=== PATIENT | female | born 1965 | race Two or more races ===

== ENCOUNTER 2016-05-23 13:16 | Inpatient (IN) | payer OTHER ==
[2016-05-23 13:41] VITALS: BMI 29.0
--- NOTE | 2016-05-23 14:11 | HP ---
CIWA Score - CIWA Score Nausea/Vomitin-Mild Nausea/No Vomiting Muscle Tremors: 4-Moderate,w/Arms Extend Anxiety: 4-Mod. Anxious/Guarded Agitation: 1-Slight > Activity Paroxysmal Sweats: 1-Minimal Palms Moist Orientation: 1-Uncertain about Date Tacttile Disturbances: 2-Mild Itch/Numbness/Burn Auditory Disturbances: 2-Mild Harshness/Frighten Visual Disturbances: 2-Mild Sensitivity Headache: 2-Mild CIWA-Ar Total Score: 20 Admission ROS S - HPI Chief Complaint: I'm tired of drinking, I'm sick, my family is upset Allergies/Adverse Reactions: Allergies Allergy/AdvReac Type Severity Reaction Status Date / Time No Known Allergies Allergy Verified 05/23/16 14:00 History of Present Illness: 50 yo woman here for detox from alcohol - last detox in [place] November 2015, relapsed, had seizure 05/13/16. Was in [facility] yesterday as fell in house ( standing on chair which collapsed) two weeks ago but kept having pain - was seen , treated (xray normal) and released. Then decided to go for detox. Exam Limitations: Clinical Condition - Ebola screening Have you traveled outside of the country in the last 21 days: No Have you had contact with anyone from an Ebola affected area: No Have you been sick,other than usual withdrawal symptoms: No Do you have a fever: No - Review of Systems Constitutional: Loss of Appetite, Malaise, Night Sweats, Changes in sleep, Weakness EENT: reports: Blurred Vision Respiratory: reports: No Symptoms reported Cardiac: reports: No Symptoms Reported GI: reports: Nausea, Indigestion : reports: Frequency Musculoskeletal: reports: Back Pain Integumentary: reports: Dryness Neuro: reports: Headache Endocrine: reports: No Symptoms Reported Hematology: reports: No Symptoms Reported Psychiatric: reports: Judgement Intact, Mood/Affect Appropiate, Orientated x3, Anxious Other Systems: Reviewed and Negative Patient History - Patient Medical History Hx Anemia: No Hx Asthma: Yes Hx Chronic Obstructive Pulmonary Disease (COPD): No Hx Cancer: No Hx Cardiac Disorders: No Hx Congestive Heart Failure: No Hx Hypertension: No Hx Hypercholesterolemia: No Hx Pacemaker: No HX Cerebrovascular Accident: No Hx Seizures: Yes (05/13/16) Hx Dementia: No Hx Diabetes: No Hx Gastrointestinal Disorders: Yes (GERD) Hx Liver Disease: Yes (pre-cirrhosis) Hx Genitourinary Disorders: No Hx Sexually Transmitted Disorders: No Hx Renal Disease (ESRD): Yes (history renal calculi) Hx Thyroid Disease: No Hx Human Immunodeficiency Virus (HIV): No Hx Hepatitis C: No Hx Depression: Yes (on meds, sees psych) Hx Suicide Attempt: Yes (hospitalized 02/2016,[facility]) Hx Bipolar Disorder: Yes - Patient Surgical History Past Surgical History: Yes Hx Abdominal Surgery: Yes (gastric bypass 2004 [facility]) Anesthesia Reaction: Yes (lithotripsy 2008 with stent (removed) ) - PPD History Previous Implant?: Yes Documented Results: Negative w/o proof Implanted On Prior [facility] Admission?: No PPD to be Administered?: Yes - Reproductive History Patient is a Female of Child Bearing Age (11 -55 yrs old): Yes Patient : No - Smoking Cessation Smoking history: Former smoker Have you smoked in the past 12 months: No Initiated information on smoking cessation: No - Substance & Tx. History Hx Alcohol Use: Yes Hx Substance Use: No Substance Use Type: Alcohol Hx Substance Use Treatment: Yes (detox, rehab) - Substances Abused Alcohol Route: Oral Frequency: Daily Amount used: 1/2 pint Age of first use: 39 Date of Last Use: 05/22/16 Family Disease History - Family Disease History Family Disease History: Diabetes: Father (), Other: Mother (, alcohol), Sister (renal stone) Admission Physical Exam S - Vital Signs Vital Signs: Vital Signs - 24 hr 05/23/16 13:37 Temperature 99.0 F Pulse Rate 88 Respiratory 20 Rate Blood Pressure 143/85 - Physical General Appearance: Yes: Nourished, Appropriately Dressed, Moderate Distress, Tremorous, Anxious HEENTM: Yes: Hearing grossly Normal, Normal ENT Inspection, Normocephalic, Normal Voice, Pharynx Normal, Other (missing teeth) Respiratory: Yes: Normal Breath Sounds, No Respiratory Distress Neck: Yes: No masses,lesions,Nodules, Supple, Trachea in good position Breast: Yes: Breast Exam Deferred Cardiology: Yes: Regular Rhythm, Regular Rate Abdominal: Yes: Soft Genitourinary: Yes: Frequency Back: Yes: Normal Inspection Musculoskeletal: Yes: full range of Motion, Gait Steady, Back pain Extremities: Yes: Normal Inspection, Non-Tender, Tremors Neurological: Yes: Fully Oriented, Alert, Normal Mood/Affect, Normal Response Integumentary: Yes: Normal Color, Warm Lymphatic: Yes: Within Normal Limits - Diagnostic (1) Alcohol dependence with uncomplicated withdrawal Current Visit: Yes Status: Chronic (2) Asthma Current Visit: Yes Status: Chronic Qualifiers: Asthma severity: mild intermittent Asthma complication type: uncomplicated Qualified Code(s): J45.20 - Mild intermittent asthma, uncomplicated (3) GERD (gastroesophageal reflux disease) Current Visit: Yes Status: Chronic Qualifiers: Esophagitis presence: esophagitis presence not specified Qualified Code(s): K21.9 - Gastro-esophageal reflux disease without esophagitis (4) Sacral contusion Current Visit: Yes Status: Chronic Qualifiers: Encounter type: subsequent encounter Qualified Code(s): S30.0XXD - Contusion of lower back and pelvis, subsequent encounter (5) History of gastric bypass Current Visit: Yes Status: Chronic Cleared for Admission [facility] - Detox or Rehab [facility] Level of Care: Medically Managed Detox Regimen/Protocol: Librium [facility] Breath Alcohol Content Breath Alcohol Content: 0 Urine Pregancy Test - Result Urine Test Results: Negative- NO Line Present Urine Drug Screen - Results Drug Screen Negative: No Urine Drug Screen Results: BZO-Benzodiazepines, TCA-Tricyclic Antidepress
[2016-05-23] MEDS ORDERED: MAGNESIUM HYDROX 2400MG/30ML ORAL SUSPENSION 30 ML CUP PO PRN (14:19)
[2016-05-23] MEDS ORDERED: IBUPROFEN 400 MG TABLET (FP) PO PRN (14:19)
[2016-05-23] MEDS ORDERED: MAGNESIUM CITRATE 300 ML BOTTLE PO PRN (14:19)
[2016-05-23] MEDS ORDERED: hydrOXYzine PAMOATE 50 MG CAPSULE (FP) PO PRN (14:19)
[2016-05-23] MEDS ORDERED: chlordiazePOXIDE HCL 25 MG CAPSULE PO ONE (14:19)
[2016-05-23] MEDS ORDERED: MENTHOL/PHENOL 1 EACH UD MM PRN (14:19)
[2016-05-23] MEDS ORDERED: chlordiazePOXIDE HCL 25 MG CAPSULE PO PRN (14:19)
[2016-05-23] MEDS ORDERED: guaiFENesin/D-METHORPHAN HB 10 ML UNIT-DOSE CUPS PO PRN (14:19)
[2016-05-23] MEDS ORDERED: LOPERAMIDE HCL 2 MG CAPSULE PO PRN (14:19)
[2016-05-23] MEDS ORDERED: MAG HYDROX/AL HYDROX/SIMETH 30 ML UNIT-DOSE CUP PO PRN (14:19)
[2016-05-23] MEDS ORDERED: ALBUTEROL SO4 6.7 GM HFA INHALER IH PRN (14:22)
[2016-05-23] MEDS: LIDOCAINE 5% TOPICAL PATCH TP SCH (16:00)
[2016-05-23] MEDS: chlordiazePOXIDE HCL 25 MG CAPSULE PO SCH ×2 (17:40→22:37)
[2016-05-23 18:01] LABS: URINE APPEARANCE CLEAR; URINE BILIRUBIN NEGATIVE (NEGATIVE); URINE COLOR LTYELLOW; URINE GLUCOSE (UA) NEGATIVE (NEGATIVE); URINE KETONE NEGATIVE (NEGATIVE); URINE NITRITE NEGATIVE (NEGATIVE); URINE PROTEIN NEGATIVE (NEGATIVE); URINE UROBILINOGEN NEGATIVE E.U./dl (0.2-1.0)
[2016-05-23 18:03] LABS: URINE BLOOD 1+ (NEGATIVE); URINE LEUK ESTERASE 1+ (NEGATIVE)
[2016-05-23 18:06] LABS: URINE BACTERIA RARE /hpf (NONE SEEN); URINE RBC <1 /hpf (0-3); URINE WBC 4 /hpf (3-5)
[2016-05-23] MEDS: THIAMINE HCL 100 MG TABLET (FP) PO SCH (22:37)
[2016-05-23] MEDS: DOCUSATE SODIUM 100 MG CAPSULE (FP) PO SCH (22:37)
[2016-05-23] MEDS: diphenhydrAMINE HCL 50 MG CAPSULE PO PRN (22:39)
[2016-05-24] MEDS: chlordiazePOXIDE HCL 25 MG CAPSULE PO SCH ×4 (05:31→22:20)
[2016-05-24 10:17] LABS: MCH 28.2 pg (25.7-33.7); MCHC 32.1 g/dl (32.0-36.0); MEAN CELL VOLUME 87.8 fl (80-96); MEAN PLT VOLUME 9.7 fl (7.5-11.1); PLATELET COUNT 90 K/MM3 (134-434); RDW 17.1 % (11.6-15.6); WHITE BLOOD COUNT 3.8 K/mm3 (4.0-10.0)
[2016-05-24] MEDS: PRENATAL VITAMINS W/ FOLIC ACID TABLET (FP) PO SCH (10:24)
[2016-05-24] MEDS: LIDOCAINE 5% TOPICAL PATCH TP SCH (10:24)
[2016-05-24] MEDS: DOCUSATE SODIUM 100 MG CAPSULE (FP) PO SCH ×2 (10:24→22:19)
[2016-05-24 10:36] LABS: ALBUMIN 2.9 g/dl (3.4-5.0); ALK PHOS 212 U/L (45-117); ANION GAP 11 (8-16); BILIRUBIN,TOTAL 0.9 mg/dL (0.2-1.0); CALCIUM 8.3 mg/dL (8.5-10.1); CO2 27 mmol/L (21-32); CREATININE 0.5 mg/dL (0.55-1.02); GLUCOSE,RANDOM 89 mg/dL (74-106); SGOT/AST 77 U/L (15-37); SGPT/ALT 39 U/L (12-78); TOT PROT 6.6 g/dl (6.4-8.2)
--- NOTE | 2016-05-24 12:24 | PN ---
[facility] CIWA - CIWA Score Nausea/Vomitin-Mild Nausea/No Vomiting Muscle Tremors: 4-Moderate,w/Arms Extend Anxiety: 4-Mod. Anxious/Guarded Agitation: 3 Paroxysmal Sweats: 3 Orientation: 0-Oriented Tacttile Disturbances: 0-None Auditory Disturbances: 0-None Visual Disturbances: 0-None Headache: 0-None Present CIWA-Ar Total Score: 15 S Progress Note (SOAP) Subjective: anxiety,tremors,sweating,interrupted sleep.Has a healed laceration rt. index Objective: 05/24/16 12:21 Vital Signs - 8 hr 05/24/16 05/24/16 06:00 10:00 Temperature 99.0 F 97.9 F Pulse Rate 65 104 H Respiratory 16 18 Rate Blood Pressure 128/84 136/82 Laboratory Last Values WBC 3.8 K/mm3 (4.0-10.0) L 05/24/16 07:50 RBC 4.02 M/mm3 (3.60-5.2) 05/24/16 07:50 Hgb 11.3 GM/dL (10.7-15.3) 05/24/16 07:50 Hct 35.3 % (32.4-45.2) 05/24/16 07:50 MCV 87.8 fl (80-96) 05/24/16 07:50 MCHC 32.1 g/dl (32.0-36.0) 05/24/16 07:50 RDW 17.1 % (11.6-15.6) H 05/24/16 07:50 Plt Count 90 K/MM3 (134-434) L 05/24/16 07:50 MPV 9.7 fl (7.5-11.1) 05/24/16 07:50 Sodium 144 mmol/L (136-145) 05/24/16 07:50 Potassium 3.3 mmol/L (3.5-5.1) L 05/24/16 07:50 Chloride 106 mmol/L (98-107) 05/24/16 07:50 Carbon Dioxide 27 mmol/L (21-32) 05/24/16 07:50 Anion Gap 11 (8-16) 05/24/16 07:50 BUN 4 mg/dL (7-18) L 05/24/16 07:50 Creatinine 0.5 mg/dL (0.55-1.02) L 05/24/16 07:50 Creat Clearance w eGFR > 60 (>60) 05/24/16 07:50 Random Glucose 89 mg/dL (74-106) 05/24/16 07:50 Calcium 8.3 mg/dL (8.5-10.1) L 05/24/16 07:50 Total Bilirubin 0.9 mg/dL (0.2-1.0) 05/24/16 07:50 AST 77 U/L (15-37) H 05/24/16 07:50 ALT 39 U/L (12-78) 05/24/16 07:50 Alkaline Phosphatase 212 U/L (45-117) H 05/24/16 07:50 Total Protein 6.6 g/dl (6.4-8.2) 05/24/16 07:50 Albumin 2.9 g/dl (3.4-5.0) L 05/24/16 07:50 Urine Color Ltyellow 05/23/16 17:54 Urine Appearance Clear 05/23/16 17:54 Urine pH 7.0 (5.0-8.0) 05/23/16 17:54 Ur Specific [place] 1.013 (1.001-1.035) 05/23/16 17:54 Urine Protein Negative (NEGATIVE) 05/23/16 17:54 Urine Glucose (UA) Negative (NEGATIVE) 05/23/16 17:54 Urine Ketones Negative (NEGATIVE) 05/23/16 17:54 Urine Blood 1+ (NEGATIVE) H 05/23/16 17:54 Urine Nitrite Negative (NEGATIVE) 05/23/16 17:54 Urine Bilirubin Negative (NEGATIVE) 05/23/16 17:54 Urine Urobilinogen Negative E.U./dl (0.2-1.0) 05/23/16 17:54 Ur Leukocyte Esterase 1+ (NEGATIVE) H 05/23/16 17:54 Urine RBC <1 /hpf (0-3) 05/23/16 17:54 Urine WBC 4 /hpf (3-5) 05/23/16 17:54 Ur Epithelial Cells Rare /hpf (FEW) 05/23/16 17:54 Urine Bacteria Rare /hpf (NONE SEEN) 05/23/16 17:54 labs noted,k-dur started Assessment: 05/24/16 12:23 Withdrawal sx. Plan: Continue detox
[2016-05-24] MEDS ORDERED: BACITRACIN 0.9 GM PACKET ONE ×2 (13:50→22:18)
[2016-05-24] MEDS: POTASSIUM CHLORIDE TABS 20 MEQ TABLET.ER (FP) PO SCH ×2 (13:51→22:19)
[2016-05-24] MEDS: ACETAMINOPHEN 325 MG TABLET (FP) PO PRN ×2 (13:52→22:23)
[2016-05-24] MEDS: P-EPHED 60MG/TRIPROLIDI 2.5MG TABLET PO PRN (13:53)
[2016-05-24] MEDS: BACITRACIN 15 GM TUBE TOPICAL OINTMENT TP SCH ×2 (13:56→22:19)
[2016-05-24] MEDS: diphenhydrAMINE HCL 50 MG CAPSULE PO PRN (22:22)
[2016-05-24] MEDS: THIAMINE HCL 100 MG TABLET (FP) PO SCH (22:33)
[2016-05-25] MEDS: chlordiazePOXIDE HCL 25 MG CAPSULE PO SCH ×2 (05:33→10:17)
--- NOTE | 2016-05-25 07:38 | CONSULT ---
[facility] Psychiatric Consult - Data Date of interview: 05/25/16 Admission source: [facility] Identifying data: Bridget is 50 years old female with psychiatric hospitalization history, history of Bipolar Disordewr intoxicated with: Alcohol and Xanax Substance Abuse History: - Smoking Cessation. Smoking history: Former smoker. Have you smoked in the past 12 months: No. Initiated information on smoking cessation: No. - Substance & Tx. History. Hx Alcohol Use: Yes. Hx Substance Use: No. Substance Use Type: Alcohol. Hx Substance Use Treatment: Yes (detox, rehab). - Substances Abused. Alcohol. Route: Oral. Frequency: Daily. Amount used: 1/2 pint. Age of first use: 39. Date of Last Use: 05/22/16. Family Disease History Medical History: Asthma, GERD, Gastric bypass history Psychiatric History: Patient reports history of Bipolar disordwer withcora banuelos psychioatric admission on 2015 at [facility] after OD, reports nom suicidal history since then, reports taking prior to admission: Seroquel 300mg po qhs. Zoloft 50mg poqd Physical/Sexual Abuse/Trauma History: Denies Additional Comment: Seroquel 300mg po qhs. Zoloft 50mg poqd Mental Status Exam - Mental Status Exam Alert and Oriented to: Person Cognitive Function: Fair Patient Appearance: Unkempt Mood: Sad Affect: Flat Patient Behavior: Sedated Speech Pattern: Delayed Voice Loudness: Mildly Soft/Quiet Thought Process: Goal Oriented Thought Disorder: Being Controlled Hallucinations: Denies Suicidal Ideation: Denies Homicidal Ideation: Denies Insight/Judgement: Fair Appetite: Fair Muscle strength/Tone: Mild Hypotonicity Gait/Station: Shuffling Additional Comments: Seroquel 300mg po qhs. Zoloft 50mg poqd Psychiatric Findings - Problem List ([place] 1, 2,3) (1) Alcohol dependence with uncomplicated withdrawal Current Visit: Yes Status: Chronic (2) Benzodiazepine abuse Current Visit: Yes Status: Acute (3) Bipolar disorder Current Visit: Yes Status: Suspected - Initial Treatment Plan Initial Treatment Plan: Seroquel 300mg po qhs. Zoloft 50mg poqd
[2016-05-25] MEDS: POTASSIUM CHLORIDE TABS 20 MEQ TABLET.ER (FP) PO SCH ×2 (10:16→22:09)
[2016-05-25] MEDS: SERTRALINE HCL 50 MG TABLET (FP) PO SCH (10:16)
[2016-05-25] MEDS: PRENATAL VITAMINS W/ FOLIC ACID TABLET (FP) PO SCH (10:16)
[2016-05-25] MEDS: DOCUSATE SODIUM 100 MG CAPSULE (FP) PO SCH ×2 (10:17→22:09)
[2016-05-25] MEDS: LIDOCAINE 5% TOPICAL PATCH TP SCH (10:18)
[2016-05-25] MEDS: BACITRACIN 15 GM TUBE TOPICAL OINTMENT TP SCH ×2 (10:20→23:34)
[2016-05-25] MEDS ORDERED: BACITRACIN 0.9 GM PACKET ONE (10:20)
[2016-05-25] MEDS ORDERED: PANTOPRAZOLE 20 MG TABLET (FP) PO ONE (10:46)
--- NOTE | 2016-05-25 10:49 | PN ---
[facility] CIWA - CIWA Score Nausea/Vomitin-No Nausea/No Vomiting Muscle Tremors: 4-Moderate,w/Arms Extend Anxiety: 4-Mod. Anxious/Guarded Agitation: 4-Moderately Restless Paroxysmal Sweats: 3 Orientation: 0-Oriented Tacttile Disturbances: 0-None Auditory Disturbances: 0-None Visual Disturbances: 0-None Headache: 0-None Present CIWA-Ar Total Score: 15 [facility] Progress Note (SOAP) Subjective: sweats agitation interrupted sleep acid reflux Objective: 05/25/16 10:48 Vital Signs Temperature 97.9 F 05/25/16 10:00 Pulse Rate 99 H 05/25/16 10:00 Respiratory Rate 18 05/25/16 10:00 Blood Pressure 134/96 05/25/16 10:00 O2 Sat by Pulse Oximetry (%) Laboratory Tests 05/23/16 05/24/16 05/24/16 17:54 07:50 07:50 WBC 3.8 L RBC 4.02 Hgb 11.3 Hct 35.3 MCV 87.8 MCHC 32.1 RDW 17.1 H Plt Count 90 L MPV 9.7 Sodium 144 Potassium 3.3 L Chloride 106 Carbon Dioxide 27 Anion Gap 11 BUN 4 L Creatinine 0.5 L Creat Clearance w eGFR > 60 Random Glucose 89 Calcium 8.3 L Total Bilirubin 0.9 AST 77 H ALT 39 Alkaline Phosphatase 212 H Total Protein 6.6 Albumin 2.9 L Urine Color Ltyellow Urine Appearance Clear Urine pH 7.0 Ur Specific [place] 1.013 Urine Protein Negative Urine Glucose (UA) Negative Urine Ketones Negative Urine Blood 1+ H Urine Nitrite Negative Urine Bilirubin Negative Urine Urobilinogen Negative Ur Leukocyte Esterase 1+ H Urine RBC <1 Urine WBC 4 Ur Epithelial Cells Rare Urine Bacteria Rare RPR Titer 05/24/16 07:50 WBC RBC Hgb Hct MCV MCHC RDW Plt Count MPV Sodium Potassium Chloride Carbon Dioxide Anion Gap BUN Creatinine Creat Clearance w eGFR Random Glucose Calcium Total Bilirubin AST ALT Alkaline Phosphatase Total Protein Albumin Urine Color Urine Appearance Urine pH Ur Specific [place] Urine Protein Urine Glucose (UA) Urine Ketones Urine Blood Urine Nitrite Urine Bilirubin Urine Urobilinogen Ur Leukocyte Esterase Urine RBC Urine WBC Ur Epithelial Cells Urine Bacteria RPR Titer Nonreactive awake/alert ambulating no acute distress Assessment: 05/25/16 10:48 withdrawal sx Plan: continue detox increase fluids protonix 20mg qdaily
--- NOTE | 2016-05-25 16:22 | EKG ---
Test Reason : Blood Pressure : / mmHG Vent. Rate : 088 BPM Atrial Rate : 088 BPM P-R Int : 140 ms QRS Dur : 068 ms QT Int : 400 ms P-R-T Axes : 037 006 011 degrees QTc Int : 484 ms NORMAL SINUS RHYTHM PROLONGED QT ABNORMAL ECG NO PREVIOUS ECGS AVAILABLE Confirmed by ANNAMARIA THAKKAR MD ([id number]) on 05/25/2016 4:22:26 PM Referred By: Confirmed By:ANNAMARIA THAKKAR MD
[2016-05-25] MEDS: chlordiazePOXIDE 5 MG CAPSULE PO SCH ×2 (18:13→22:09)
[2016-05-25] MEDS: P-EPHED 60MG/TRIPROLIDI 2.5MG TABLET PO PRN (18:25)
[2016-05-25] MEDS: QUEtiapine FUMARATE 300 MG TABLET PO SCH (22:09)
[2016-05-25] MEDS: THIAMINE HCL 100 MG TABLET (FP) PO SCH (22:09)
[2016-05-25 22:50] LABS: HIV 1 & 2 AB NEGATIVE; HIV 1 AGp24 NEGATIVE
[2016-05-26] MEDS: chlordiazePOXIDE 5 MG CAPSULE PO SCH ×2 (05:58→10:18)
[2016-05-26] MEDS: DOCUSATE SODIUM 100 MG CAPSULE (FP) PO SCH ×2 (10:17→22:21)
[2016-05-26] MEDS: PANTOPRAZOLE 20 MG TABLET (FP) PO SCH (10:17)
[2016-05-26] MEDS: SERTRALINE HCL 50 MG TABLET (FP) PO SCH (10:17)
[2016-05-26] MEDS: PRENATAL VITAMINS W/ FOLIC ACID TABLET (FP) PO SCH (10:17)
[2016-05-26] MEDS: POTASSIUM CHLORIDE TABS 20 MEQ TABLET.ER (FP) PO SCH ×2 (10:18→22:21)
[2016-05-26] MEDS: BACITRACIN 15 GM TUBE TOPICAL OINTMENT TP SCH (10:19)
[2016-05-26] MEDS: LIDOCAINE 5% TOPICAL PATCH TP SCH (10:19)
--- NOTE | 2016-05-26 11:11 | PN ---
[facility] Progress Note (SOAP) Subjective: interrupted sleep, less sweats and shakes Objective: 05/26/16 11:09 Last Vital Signs Temp Pulse Resp BP Pulse Ox 97.5 F L 96 H 18 114/86 05/26/16 10:08 05/26/16 10:08 05/26/16 10:08 05/26/16 10:08 Laboratory Tests 05/23/16 05/24/16 05/24/16 17:54 07:50 07:50 WBC 3.8 L RBC 4.02 Hgb 11.3 Hct 35.3 MCV 87.8 MCHC 32.1 RDW 17.1 H Plt Count 90 L MPV 9.7 Sodium 144 Potassium 3.3 L Chloride 106 Carbon Dioxide 27 Anion Gap 11 BUN 4 L Creatinine 0.5 L Creat Clearance w eGFR > 60 Random Glucose 89 Calcium 8.3 L Total Bilirubin 0.9 AST 77 H ALT 39 Alkaline Phosphatase 212 H Total Protein 6.6 Albumin 2.9 L Urine Color Ltyellow Urine Appearance Clear Urine pH 7.0 Ur Specific [place] 1.013 Urine Protein Negative Urine Glucose (UA) Negative Urine Ketones Negative Urine Blood 1+ H Urine Nitrite Negative Urine Bilirubin Negative Urine Urobilinogen Negative Ur Leukocyte Esterase 1+ H Urine RBC <1 Urine WBC 4 Ur Epithelial Cells Rare Urine Bacteria Rare RPR Titer HIV 1&2 Antibody Screen HIV P24 Antigen 05/24/16 05/25/16 07:50 10:30 WBC RBC Hgb Hct MCV MCHC RDW Plt Count MPV Sodium Potassium Chloride Carbon Dioxide Anion Gap BUN Creatinine Creat Clearance w eGFR Random Glucose Calcium Total Bilirubin AST ALT Alkaline Phosphatase Total Protein Albumin Urine Color Urine Appearance Urine pH Ur Specific [place] Urine Protein Urine Glucose (UA) Urine Ketones Urine Blood Urine Nitrite Urine Bilirubin Urine Urobilinogen Ur Leukocyte Esterase Urine RBC Urine WBC Ur Epithelial Cells Urine Bacteria RPR Titer Nonreactive HIV 1&2 Antibody Screen Negative HIV P24 Antigen Negative pt aox3 in nad ambulating Assessment: 05/26/16 11:09 withdrawl sx's Plan: cont. detox increase fluids d/c in am
[2016-05-26] MEDS: chlordiazePOXIDE HCL 10 MG CAPSULE PO SCH ×2 (18:08→22:21)
[2016-05-26] MEDS: THIAMINE HCL 100 MG TABLET (FP) PO SCH (22:21)
[2016-05-26] MEDS: QUEtiapine FUMARATE 300 MG TABLET PO SCH (22:21)
[2016-05-27] MEDS: BACITRACIN 15 GM TUBE TOPICAL OINTMENT TP SCH ×2 (00:08→10:08)
[2016-05-27] MEDS: chlordiazePOXIDE HCL 10 MG CAPSULE PO SCH ×2 (06:42→10:06)
--- NOTE | 2016-05-27 09:16 | DS ---
[facility] Detox Discharge Summary Admission Date: 05/23/16 Discharge Date: 05/27/16 - History Present History: Alcohol Dependence, Sedative Dependence - Physical Exam Results Vital Signs: Vital Signs Temperature 98.1 F 05/27/16 07:00 Pulse Rate 72 05/27/16 07:00 Respiratory Rate 18 05/27/16 07:00 Blood Pressure 103/60 05/27/16 07:00 O2 Sat by Pulse Oximetry (%) - Treatment Hospital Course: Detox Protocol Followed, Detoxed Safely, Responded well, Discharged Condition Good, Rehab Referral Accepted - Medication Discharge Medications: Ambulatory Orders Albuterol Sulfate Inhaler - [Ventolin Hfa Inhaler -] 2 inh PO Q4H PRN 05/23/16 Docusate Sodium [Colace -] 100 mg PO BID 05/23/16 Famotidine [Pepcid -] 20 mg PO BID 05/23/16 Quetiapine Fumarate [Seroquel -] 200 mg PO HS 05/23/16 Quetiapine Fumarate [Seroquel -] 300 mg PO HS #30 tab 05/25/16 Sertraline HCl 50 mg PO DAILY #30 tablet 05/25/16 Sertraline HCl [Zoloft -] 50 mg PO DAILY #30 05/25/16 - Diagnosis (1) Benzodiazepine abuse Current Visit: Yes Status: Chronic (2) Alcohol dependence with uncomplicated withdrawal Current Visit: Yes Status: Chronic (3) Asthma Current Visit: Yes Status: Chronic Qualifiers: Asthma severity: mild intermittent Asthma complication type: uncomplicated Qualified Code(s): J45.20 - Mild intermittent asthma, uncomplicated (4) GERD (gastroesophageal reflux disease) Current Visit: Yes Status: Chronic Qualifiers: Esophagitis presence: esophagitis presence not specified Qualified Code(s): K21.9 - Gastro-esophageal reflux disease without esophagitis (5) History of gastric bypass Current Visit: Yes Status: Chronic (6) Sacral contusion Current Visit: Yes Status: Chronic Qualifiers: Encounter type: subsequent encounter Qualified Code(s): S30.0XXD - Contusion of lower back and pelvis, subsequent encounter (7) Bipolar disorder Current Visit: Yes Status: Suspected - AMA Did Patient Leave Against Medical Advice: No
[2016-05-27] MEDS: PANTOPRAZOLE 20 MG TABLET (FP) PO SCH (10:05)
[2016-05-27] MEDS: POTASSIUM CHLORIDE TABS 20 MEQ TABLET.ER (FP) PO SCH (10:05)
[2016-05-27] MEDS: SERTRALINE HCL 50 MG TABLET (FP) PO SCH (10:05)
[2016-05-27] MEDS: PRENATAL VITAMINS W/ FOLIC ACID TABLET (FP) PO SCH (10:05)
[2016-05-27] MEDS: DOCUSATE SODIUM 100 MG CAPSULE (FP) PO SCH (10:06)
[2016-05-27] MEDS: LIDOCAINE 5% TOPICAL PATCH TP SCH (10:07)
[2016-05-27 10:20] VITALS: BP 116/78; PULSE 107; TEMP 96.4
[2016-05-27] MEDS ORDERED: BACITRACIN 0.9 GM PACKET ONE (10:56)
== END 2016-05-27 12:06 | disposition other institution (70) | DRG 897 ==
LOC: YASAS 13:16 → Y6N 15:11
PROVIDERS: ADMIT Internal Medicine; ATTEND Internal Medicine Addiction Medicine
PROC: HZ2ZZZZ Detoxification Services for Substance Abuse Treatment (ICD-10-PCS; principal; 2016-05-27)
DX: F10.230 Alcohol dependence with withdrawal, uncomplicated (principal); F13.10 Sedative, hypnotic or anxiolytic abuse, uncomplicated; F31.9 Bipolar disorder, unspecified; J45.20 Mild intermittent asthma, uncomplicated; K21.9 Gastro-esophageal reflux disease without esophagitis; Z98.84 Bariatric surgery status
CPT/HCPCS: 36415; 80053; 81003; 81015; 85027; 86593; 87389; 93005; 93010

== ENCOUNTER 2016-05-27 12:53 | Inpatient (IN) | payer OTHER ==
--- NOTE | 2016-05-27 14:05 | HP ---
Psychiatrist Admission - Data Date of interview: 05/27/16 Admission source: [address] [place] [address] Identifying data: This is the first admission to [address] [place] [address] for this 50 yearsold H mother of 4 grown children, resides with family,supported by [facility]. Medical History: H/O Gastric bypass,Liver insufficiency,Kidney stones,Seizure alcohol induced,S/P Sacral contusion,GERD,BA.Pancreatitis. Psychiatric History: Reports first contact with psychiatrist in 2006 to address depressed mood,anxiety in Private office in [facility].She was placed on Ambien,Zoloft ,Trazodone.Patient has been on different psychotropics including .She reports 5 psychiatric hospitalizations ,most recent was in Feb [address] [facility] due to DOD and drinking.Follow up by psychiatrist at [facility] in the [place].Current medications:Zoloft 50 mg po daily and Seroquel 300 mg po hs. Physical/Sexual Abuse/Trauma History: denies Allergies/Adverse Reactions: Allergies Allergy/AdvReac Type Severity Reaction Status Date / Time No Known Allergies Allergy Verified 05/23/16 14:00 Date of last physical exam: 05/23/16 Concur with the findings of this exam: Yes - Substance Abuse/Tx History Hx Alcohol Use: Yes (reports drinking since 45 years old,became heavy drinker ) Hx Substance Use: Yes (pain killers in the past) Substance Use Type: Alcohol, Opiates Hx Substance Use Treatment: Yes (completed 28 days in [place] last year) - Admission Criteria Previous failed treatment: Yes Poor recovery environment: Yes Comorbidities: Yes Lacks judgement: Yes Mental Status Exam - Mental Status Exam Alert and Oriented to: Time, Place, Person Cognitive Function: Grossly Intact Patient Appearance: Well Groomed Mood: Sad Affect: Mood Congruent, Labile Patient Behavior: Cooperative Speech Pattern: Clear Voice Loudness: Normal Thought Process: Goal Oriented Thought Disorder: Not Present Hallucinations: Denies Suicidal Ideation: Denies Homicidal Ideation: Denies Insight/Judgement: Fair Sleep: Fair Appetite: Fair Muscle strength/Tone: Normal Gait/Station: Normal Psychiatric Findings - Problem List ([place] 1, 2,3) (1) Alcohol dependence with uncomplicated withdrawal Current Visit: Yes Status: Chronic (2) Asthma Current Visit: Yes Status: Chronic Qualifiers: (3) Benzodiazepine abuse Current Visit: Yes Status: Chronic (4) GERD (gastroesophageal reflux disease) Current Visit: Yes Status: Chronic Qualifiers: (5) History of gastric bypass Current Visit: Yes Status: Chronic (6) Sacral contusion Current Visit: Yes Status: Chronic Qualifiers: (7) Bipolar disorder Current Visit: Yes Status: Suspected - Initial Treatment Plan Initial Treatment Plan: Continue current medications as per plan. Will monitor progress.
[2016-05-27] MEDS ORDERED: IBUPROFEN 400 MG TABLET (FP) PO PRN (14:13)
[2016-05-27] MEDS ORDERED: MAGNESIUM CITRATE 300 ML BOTTLE PO PRN (14:13)
[2016-05-27] MEDS ORDERED: MAG HYDROX/AL HYDROX/SIMETH 30 ML UNIT-DOSE CUP PO PRN (14:13)
[2016-05-27] MEDS ORDERED: P-EPHED 60MG/TRIPROLIDI 2.5MG TABLET PO PRN (14:13)
[2016-05-27] MEDS ORDERED: MAGNESIUM HYDROX 2400MG/30ML ORAL SUSPENSION 30 ML CUP PO PRN (14:13)
[2016-05-27] MEDS ORDERED: LOPERAMIDE HCL 2 MG CAPSULE PO PRN (14:13)
[2016-05-27] MEDS ORDERED: ALBUTEROL SO4 6.7 GM HFA INHALER IH PRN (14:14)
--- NOTE | 2016-05-27 14:15 | HP ---
[facility] Rehab Assess/Revision - Admission History Admitted to Rehab from: [facility] [place] Date of Admission to Rehab: 05/27/16 - Vital signs Vital Signs: Vital Signs Period Temp Pulse Resp BP Sys/Kwong Pulse Ox Last 24 Hr 97.8 F 89 18 115/78 - Findings Detox History & Physical reviewed: Yes Concur with findings: Yes
[2016-05-27] MEDS ORDERED: PNEUMOC 13-VAL CONJ-DIP CRM/PF 0.5 ML DISP.SYRIN IM ONE (15:19)
[2016-05-27] MEDS: DOCUSATE SODIUM 100 MG CAPSULE (FP) PO SCH (21:12)
[2016-05-27] MEDS: QUEtiapine FUMARATE 300 MG TABLET PO SCH (21:12)
[2016-05-27] MEDS: BACITRACIN 0.9 GM PACKET TP SCH (21:12)
[2016-05-27] MEDS: THIAMINE HCL 100 MG TABLET (FP) PO SCH (21:12)
[2016-05-28] MEDS: PANTOPRAZOLE 20 MG TABLET (FP) PO SCH (09:46)
[2016-05-28] MEDS: PRENATAL VITAMINS W/ FOLIC ACID TABLET (FP) PO SCH (09:46)
[2016-05-28] MEDS: LIDOCAINE 5% TOPICAL PATCH TP SCH (09:46)
[2016-05-28] MEDS: SERTRALINE HCL 50 MG TABLET (FP) PO SCH (09:46)
[2016-05-28] MEDS: DOCUSATE SODIUM 100 MG CAPSULE (FP) PO SCH ×2 (09:46→21:07)
[2016-05-28] MEDS: BACITRACIN 0.9 GM PACKET TP SCH ×2 (09:47→21:07)
[2016-05-28] MEDS ORDERED: PNEUMOCOCCAL 23 VACCINE 0.5 ML VIAL IM ONE (12:00)
[2016-05-28] MEDS: THIAMINE HCL 100 MG TABLET (FP) PO SCH (21:07)
[2016-05-28] MEDS: QUEtiapine FUMARATE 300 MG TABLET PO SCH (21:07)
[2016-05-29] MEDS: DOCUSATE SODIUM 100 MG CAPSULE (FP) PO SCH ×2 (10:35→21:20)
[2016-05-29] MEDS: PRENATAL VITAMINS W/ FOLIC ACID TABLET (FP) PO SCH (10:35)
[2016-05-29] MEDS: PANTOPRAZOLE 20 MG TABLET (FP) PO SCH (10:35)
[2016-05-29] MEDS: BACITRACIN 0.9 GM PACKET TP SCH ×2 (10:35→21:19)
[2016-05-29] MEDS: SERTRALINE HCL 50 MG TABLET (FP) PO SCH (10:35)
[2016-05-29] MEDS: LIDOCAINE 5% TOPICAL PATCH TP SCH (10:36)
[2016-05-29] MEDS: QUEtiapine FUMARATE 300 MG TABLET PO SCH (21:20)
[2016-05-29] MEDS: THIAMINE HCL 100 MG TABLET (FP) PO SCH (21:20)
[2016-05-30] MEDS: SERTRALINE HCL 50 MG TABLET (FP) PO SCH (09:51)
[2016-05-30] MEDS: LIDOCAINE 5% TOPICAL PATCH TP SCH (09:51)
[2016-05-30] MEDS: DOCUSATE SODIUM 100 MG CAPSULE (FP) PO SCH ×2 (09:51→21:19)
[2016-05-30] MEDS: PANTOPRAZOLE 20 MG TABLET (FP) PO SCH (09:51)
[2016-05-30] MEDS: BACITRACIN 0.9 GM PACKET TP SCH ×2 (09:51→21:19)
[2016-05-30] MEDS: PRENATAL VITAMINS W/ FOLIC ACID TABLET (FP) PO SCH (09:51)
[2016-05-30] MEDS: QUEtiapine FUMARATE 300 MG TABLET PO SCH (21:19)
[2016-05-30] MEDS: THIAMINE HCL 100 MG TABLET (FP) PO SCH (21:19)
[2016-05-31] MEDS: DOCUSATE SODIUM 100 MG CAPSULE (FP) PO SCH ×2 (09:42→21:15)
[2016-05-31] MEDS: LIDOCAINE 5% TOPICAL PATCH TP SCH (09:42)
[2016-05-31] MEDS: SERTRALINE HCL 50 MG TABLET (FP) PO SCH (09:42)
[2016-05-31] MEDS: BACITRACIN 0.9 GM PACKET TP SCH ×2 (09:42→21:15)
[2016-05-31] MEDS: PANTOPRAZOLE 20 MG TABLET (FP) PO SCH (09:42)
[2016-05-31] MEDS: PRENATAL VITAMINS W/ FOLIC ACID TABLET (FP) PO SCH (09:42)
[2016-05-31] MEDS: THIAMINE HCL 100 MG TABLET (FP) PO SCH (21:15)
[2016-05-31] MEDS: QUEtiapine FUMARATE 300 MG TABLET PO SCH (21:15)
[2016-05-31] MEDS: diphenhydrAMINE HCL 50 MG CAPSULE PO PRN (21:15)
[2016-06-01] MEDS: guaiFENesin/D-METHORPHAN HB 10 ML UNIT-DOSE CUPS PO PRN (06:52)
[2016-06-01] MEDS: MENTHOL/PHENOL 1 EACH UD MM PRN (06:53)
[2016-06-01] MEDS: BACITRACIN 0.9 GM PACKET TP SCH ×2 (09:18→21:06)
[2016-06-01] MEDS: LIDOCAINE 5% TOPICAL PATCH TP SCH (09:18)
[2016-06-01] MEDS: DOCUSATE SODIUM 100 MG CAPSULE (FP) PO SCH ×2 (09:18→21:06)
[2016-06-01] MEDS: PANTOPRAZOLE 20 MG TABLET (FP) PO SCH (09:19)
[2016-06-01] MEDS: PRENATAL VITAMINS W/ FOLIC ACID TABLET (FP) PO SCH (09:19)
[2016-06-01] MEDS: SERTRALINE HCL 50 MG TABLET (FP) PO SCH (09:19)
[2016-06-01] MEDS: ACETAMINOPHEN 325 MG TABLET (FP) PO PRN (21:06)
[2016-06-01] MEDS: QUEtiapine FUMARATE 300 MG TABLET PO SCH (21:06)
[2016-06-01] MEDS: THIAMINE HCL 100 MG TABLET (FP) PO SCH (21:06)
[2016-06-01] MEDS: diphenhydrAMINE HCL 50 MG CAPSULE PO PRN (21:08)
[2016-06-02] MEDS: ACETAMINOPHEN 325 MG TABLET (FP) PO PRN (09:00)
[2016-06-02] MEDS: PANTOPRAZOLE 20 MG TABLET (FP) PO SCH (09:01)
[2016-06-02] MEDS: PRENATAL VITAMINS W/ FOLIC ACID TABLET (FP) PO SCH (09:02)
[2016-06-02] MEDS: SERTRALINE HCL 50 MG TABLET (FP) PO SCH (09:02)
[2016-06-02] MEDS: DOCUSATE SODIUM 100 MG CAPSULE (FP) PO SCH ×2 (09:02→21:16)
[2016-06-02] MEDS: guaiFENesin/D-METHORPHAN HB 10 ML UNIT-DOSE CUPS PO PRN (09:02)
[2016-06-02] MEDS: BACITRACIN 0.9 GM PACKET TP SCH ×2 (09:02→21:16)
[2016-06-02] MEDS: LIDOCAINE 5% TOPICAL PATCH TP SCH (09:02)
[2016-06-02] MEDS: MENTHOL/PHENOL 1 EACH UD MM PRN (09:03)
[2016-06-02] MEDS: QUEtiapine FUMARATE 300 MG TABLET PO SCH (21:16)
[2016-06-02] MEDS: THIAMINE HCL 100 MG TABLET (FP) PO SCH (21:16)
[2016-06-02] MEDS: diphenhydrAMINE HCL 50 MG CAPSULE PO PRN (21:16)
[2016-06-03] MEDS: LIDOCAINE 5% TOPICAL PATCH TP SCH (09:48)
[2016-06-03] MEDS: BACITRACIN 0.9 GM PACKET TP SCH ×2 (09:48→21:15)
[2016-06-03] MEDS: DOCUSATE SODIUM 100 MG CAPSULE (FP) PO SCH ×2 (09:49→21:15)
[2016-06-03] MEDS: PRENATAL VITAMINS W/ FOLIC ACID TABLET (FP) PO SCH (09:49)
[2016-06-03] MEDS: SERTRALINE HCL 50 MG TABLET (FP) PO SCH (09:49)
[2016-06-03] MEDS: PANTOPRAZOLE 20 MG TABLET (FP) PO SCH (09:49)
[2016-06-03] MEDS: diphenhydrAMINE HCL 50 MG CAPSULE PO PRN (21:15)
[2016-06-03] MEDS: QUEtiapine FUMARATE 300 MG TABLET PO SCH (21:15)
[2016-06-03] MEDS: THIAMINE HCL 100 MG TABLET (FP) PO SCH (21:15)
[2016-06-04] MEDS: MENTHOL/PHENOL 1 EACH UD MM PRN (08:49)
[2016-06-04] MEDS: ACETAMINOPHEN 325 MG TABLET (FP) PO PRN ×2 (08:49→21:10)
[2016-06-04] MEDS: guaiFENesin/D-METHORPHAN HB 10 ML UNIT-DOSE CUPS PO PRN (08:49)
[2016-06-04] MEDS: PANTOPRAZOLE 20 MG TABLET (FP) PO SCH (09:55)
[2016-06-04] MEDS: SERTRALINE HCL 50 MG TABLET (FP) PO SCH (09:55)
[2016-06-04] MEDS: LIDOCAINE 5% TOPICAL PATCH TP SCH (09:55)
[2016-06-04] MEDS: DOCUSATE SODIUM 100 MG CAPSULE (FP) PO SCH ×2 (09:55→21:08)
[2016-06-04] MEDS: PRENATAL VITAMINS W/ FOLIC ACID TABLET (FP) PO SCH (09:55)
[2016-06-04] MEDS: BACITRACIN 0.9 GM PACKET TP SCH ×2 (09:55→21:08)
[2016-06-04] MEDS: THIAMINE HCL 100 MG TABLET (FP) PO SCH (21:08)
[2016-06-04] MEDS: QUEtiapine FUMARATE 300 MG TABLET PO SCH (21:08)
[2016-06-04] MEDS: diphenhydrAMINE HCL 50 MG CAPSULE PO PRN (21:08)
[2016-06-05] MEDS: BACITRACIN 0.9 GM PACKET TP SCH ×2 (09:04→21:13)
[2016-06-05] MEDS: SERTRALINE HCL 50 MG TABLET (FP) PO SCH (09:04)
[2016-06-05] MEDS: LIDOCAINE 5% TOPICAL PATCH TP SCH (09:04)
[2016-06-05] MEDS: DOCUSATE SODIUM 100 MG CAPSULE (FP) PO SCH ×2 (09:04→21:13)
[2016-06-05] MEDS: PANTOPRAZOLE 20 MG TABLET (FP) PO SCH (09:05)
[2016-06-05] MEDS: PRENATAL VITAMINS W/ FOLIC ACID TABLET (FP) PO SCH (09:05)
[2016-06-05] MEDS: ACETAMINOPHEN 325 MG TABLET (FP) PO PRN (09:05)
--- NOTE | 2016-06-05 10:12 | PN ---
Psychiatric Progress Note Vital Signs: Vital Signs Period Temp Pulse Resp BP Sys/Kwong Pulse Ox Last 24 Hr 98.4 F 74 16- 121/84 Date of Session: 06/05/16 Chief Complaint:: Andrea not sleeping for a few nights since my admission." HPI: Patient addressed alcohol and Anxiolytic dependence comorbid with Bipolar disorder. ROS: BA,H/O Gastric bypass,GERD. Current Medications: Active Medications Generic Name Dose Route Start Last Admin Trade Name Freq PRN Reason Stop Dose Admin Acetaminophen 650 mg 05/27/16 14:13 06/05/16 09:05 Tylenol - PO 650 mg Q4H PRN Administration FEVER OR PAIN Al Hydroxide/Mg Hydroxide 30 ml 05/27/16 14:13 Mylanta Oral Suspension - PO Q6H PRN DYSPEPSIA Albuterol Sulfate 2 puff 05/27/16 14:14 Ventolin Hfa Inhaler - IH Q4H PRN WHEEZING Bacitracin 0.9 gm 05/27/16 22:00 06/05/16 09:04 Bacitracin - TP 0.9 gm BID AGATHA Administration Diphenhydramine HCl 50 mg 05/27/16 14:13 06/04/16 21:08 Benadryl - PO 50 mg HSMR1 PRN Administration FOR ITCHING Docusate Sodium 100 mg 05/27/16 22:00 06/05/16 09:04 Colace - PO 100 mg BID AGATHA Administration Eucalyptus/Menthol/Phenol/Sorbitol 1 each 05/27/16 14:13 06/04/16 08:49 Cepastat Lozenge - MM 1 each Q4H PRN Administration SORE THROAT Guaifenesin 10 ml 05/27/16 14:13 06/04/16 08:49 Robitussin Dm - PO 10 ml Q6H PRN Administration COUGH Ibuprofen 400 mg 05/27/16 14:13 06/01/16 06:51 Motrin - PO 400 mg Q6H PRN Administration PAIN Lidocaine 1 patch 05/28/16 10:00 06/05/16 09:04 Lidoderm Patch - TP 1 patch DAILY AGATHA Administration Loperamide HCl 4 mg 05/27/16 14:13 Imodium - PO Q6H PRN DIARRHEA Magnesium Hydroxide 30 ml 05/27/16 14:13 Milk Of Magnesia - PO DAILY PRN CONSTIPATION Pantoprazole Sodium 20 mg 05/28/16 10:00 06/05/16 09:05 Protonix - PO 20 mg DAILY AGATHA Administration Multivit/Folic Acid/Iron 1 tab 05/28/16 10:00 06/05/16 09:05 Vitamins (Sjr) - PO 1 tab DAILY AGATHA Administration Pseudoephedrine/Triprolidine 1 combo 05/27/16 14:13 Actifed - PO TID PRN NASAL CONGESTION Quetiapine Fumarate 300 mg 05/27/16 22:00 06/04/16 21:08 Seroquel - PO 300 mg HS AGATHA Administration Sertraline HCl 50 mg 05/28/16 10:00 06/05/16 09:04 Zoloft - PO 50 mg DAILY AGATHA Administration Thiamine HCl 100 mg 05/27/16 22:00 06/04/16 21:08 Vitamin B1 - PO 100 mg HS AGATHA Administration Trazodone HCl 100 mg 06/05/16 22:00 Desyrel - PO HS AGATHA Current Side Effect: No Lab tests ordered: No Lab tests reviewed: Yes Provider note:: Chart was revuewed ,patient was evaluated.She addressed ongoing sleeping difficulties,reports that it takes time to fall asleep and her sleep pattern is very interrupted.Treatment plan,medication management has been discussed with the patient .Properties of Trazodone has been discussed with the patient including side effect profile and benefits as well as dose adjustment. Trazodone 100 mg po hs will be started tonight. Supportive therapy provided. Total face to face time:: 30 Mental Status Exam - Mental Status Exam Alert and Oriented to: Time, Place, Person Cognitive Function: Grossly Intact Patient Appearance: Unkempt Mood: Sad, Anxious Affect: Mood Congruent, Labile Patient Behavior: Cooperative Speech Pattern: Clear Voice Loudness: Normal Thought Process: Goal Oriented Thought Disorder: Not Present Hallucinations: Denies Suicidal Ideation: Denies Homicidal Ideation: Denies Insight/Judgement: Fair Sleep: Difficulty falling asleep Appetite: Good Muscle strength/Tone: Normal Gait/Station: Normal Psychiatric Treatment Plan - Problem List (1) Alcohol dependence with uncomplicated withdrawal Current Visit: Yes (2) Asthma Current Visit: Yes Qualifiers: (3) Benzodiazepine abuse Current Visit: Yes (4) GERD (gastroesophageal reflux disease) Current Visit: Yes Qualifiers: (5) History of gastric bypass Current Visit: Yes (6) Sacral contusion Current Visit: Yes Qualifiers: (7) Bipolar disorder Current Visit: Yes
--- NOTE | 2016-06-05 13:45 | PN ---
[facility] Progress Note Note: c/o epigastric pain,has hx. of pancreatitis Vital Signs - 8 hr 06/05/16 06:44 Temperature 98.4 F Pulse Rate 74 Respiratory 16 Rate Blood Pressure 121/84 abd. : soft,slight tenderness during palpation of epigastric region. Dx. : r/o chronic pancreatitis P : amylase & lipase
[2016-06-05] MEDS: QUEtiapine FUMARATE 300 MG TABLET PO SCH (21:13)
[2016-06-05] MEDS: THIAMINE HCL 100 MG TABLET (FP) PO SCH (21:13)
[2016-06-05] MEDS: diphenhydrAMINE HCL 50 MG CAPSULE PO PRN (21:14)
[2016-06-05] MEDS: traZODone HCL 100 MG TABLET (FP) PO SCH (23:10)
[2016-06-06] MEDS: BACITRACIN 0.9 GM PACKET TP SCH ×2 (09:48→21:08)
[2016-06-06] MEDS: DOCUSATE SODIUM 100 MG CAPSULE (FP) PO SCH ×2 (09:48→21:08)
[2016-06-06] MEDS: LIDOCAINE 5% TOPICAL PATCH TP SCH (09:48)
[2016-06-06] MEDS: PANTOPRAZOLE 20 MG TABLET (FP) PO SCH (09:49)
[2016-06-06] MEDS: PRENATAL VITAMINS W/ FOLIC ACID TABLET (FP) PO SCH (09:49)
[2016-06-06] MEDS: SERTRALINE HCL 50 MG TABLET (FP) PO SCH (09:49)
[2016-06-06 10:11] LABS: MCHC 31.8 g/dl (32.0-36.0); MEAN CELL VOLUME 88.1 fl (80-96); MEAN PLT VOLUME 9.5 fl (7.5-11.1); PLATELET COUNT 375 K/MM3 (134-434); RDW 16.5 % (11.6-15.6)
[2016-06-06 10:40] LABS: ALBUMIN 3.1 g/dl (3.4-5.0); ALK PHOS 150 U/L (45-117); AMYLASE 60 U/L (25-115); ANION GAP 10 (8-16); BILIRUBIN,TOTAL 0.3 mg/dL (0.2-1.0); CO2 25 mmol/L (21-32); CREATININE 0.6 mg/dL (0.55-1.02); GLUCOSE,RANDOM 89 mg/dL (74-106); SGOT/AST 94 U/L (15-37); SGPT/ALT 126 U/L (12-78); TOT PROT 6.7 g/dl (6.4-8.2)
[2016-06-06] MEDS: THIAMINE HCL 100 MG TABLET (FP) PO SCH (21:08)
[2016-06-06] MEDS: traZODone HCL 100 MG TABLET (FP) PO SCH (21:08)
[2016-06-06] MEDS: QUEtiapine FUMARATE 300 MG TABLET PO SCH (21:08)
[2016-06-07] MEDS: BACITRACIN 0.9 GM PACKET TP SCH ×2 (09:35→21:09)
[2016-06-07] MEDS: LIDOCAINE 5% TOPICAL PATCH TP SCH (09:35)
[2016-06-07] MEDS: PRENATAL VITAMINS W/ FOLIC ACID TABLET (FP) PO SCH (09:36)
[2016-06-07] MEDS: SERTRALINE HCL 50 MG TABLET (FP) PO SCH (09:36)
[2016-06-07] MEDS: PANTOPRAZOLE 20 MG TABLET (FP) PO SCH (09:36)
[2016-06-07] MEDS: DOCUSATE SODIUM 100 MG CAPSULE (FP) PO SCH ×2 (09:36→21:09)
[2016-06-07] MEDS: traZODone HCL 100 MG TABLET (FP) PO SCH (21:09)
[2016-06-07] MEDS: QUEtiapine FUMARATE 300 MG TABLET PO SCH (21:09)
[2016-06-07] MEDS: THIAMINE HCL 100 MG TABLET (FP) PO SCH (21:09)
[2016-06-08] MEDS: LIDOCAINE 5% TOPICAL PATCH TP SCH (10:02)
[2016-06-08] MEDS: PANTOPRAZOLE 20 MG TABLET (FP) PO SCH (10:02)
[2016-06-08] MEDS: PRENATAL VITAMINS W/ FOLIC ACID TABLET (FP) PO SCH (10:03)
[2016-06-08] MEDS: DOCUSATE SODIUM 100 MG CAPSULE (FP) PO SCH ×2 (10:03→21:26)
[2016-06-08] MEDS: SERTRALINE HCL 50 MG TABLET (FP) PO SCH (10:03)
[2016-06-08] MEDS: BACITRACIN 0.9 GM PACKET TP SCH ×2 (10:03→21:26)
[2016-06-08] MEDS: MENTHOL/PHENOL 1 EACH UD MM PRN (10:04)
[2016-06-08 19:06] LABS: URINE APPEARANCE SLCLOUDY; URINE BILIRUBIN NEGATIVE (NEGATIVE); URINE COLOR YELLOW; URINE GLUCOSE (UA) NEGATIVE (NEGATIVE); URINE KETONE NEGATIVE (NEGATIVE); URINE NITRITE NEGATIVE (NEGATIVE); URINE PROTEIN NEGATIVE (NEGATIVE); URINE UROBILINOGEN NEGATIVE E.U./dl (0.2-1.0)
[2016-06-08 19:24] LABS: URINE BLOOD 1+ (NEGATIVE); URINE LEUK ESTERASE 3+ (NEGATIVE)
[2016-06-08 19:42] LABS: URINE BACTERIA FEW /hpf (NONE SEEN); URINE MUCUS RARE; URINE RBC 46 /hpf (0-3); URINE WBC 32 /hpf (3-5)
[2016-06-08] MEDS: THIAMINE HCL 100 MG TABLET (FP) PO SCH (21:26)
[2016-06-08] MEDS: traZODone HCL 100 MG TABLET (FP) PO SCH (21:26)
[2016-06-08] MEDS: QUEtiapine FUMARATE 300 MG TABLET PO SCH (21:26)
[2016-06-09] MEDS: DOCUSATE SODIUM 100 MG CAPSULE (FP) PO SCH ×2 (10:17→21:21)
[2016-06-09] MEDS: PANTOPRAZOLE 20 MG TABLET (FP) PO SCH (10:17)
[2016-06-09] MEDS: SERTRALINE HCL 50 MG TABLET (FP) PO SCH (10:17)
[2016-06-09] MEDS: LIDOCAINE 5% TOPICAL PATCH TP SCH (10:18)
[2016-06-09] MEDS: PRENATAL VITAMINS W/ FOLIC ACID TABLET (FP) PO SCH (10:18)
[2016-06-09] MEDS: BACITRACIN 0.9 GM PACKET TP SCH ×2 (10:18→21:21)
[2016-06-09] MEDS: QUEtiapine FUMARATE 300 MG TABLET PO SCH (21:21)
[2016-06-09] MEDS: traZODone HCL 100 MG TABLET (FP) PO SCH (21:21)
[2016-06-09] MEDS: THIAMINE HCL 100 MG TABLET (FP) PO SCH (21:21)
[2016-06-10] MEDS: SERTRALINE HCL 50 MG TABLET (FP) PO SCH (10:11)
[2016-06-10] MEDS: DOCUSATE SODIUM 100 MG CAPSULE (FP) PO SCH ×2 (10:11→21:17)
[2016-06-10] MEDS: PANTOPRAZOLE 20 MG TABLET (FP) PO SCH (10:11)
[2016-06-10] MEDS: PRENATAL VITAMINS W/ FOLIC ACID TABLET (FP) PO SCH (10:11)
[2016-06-10] MEDS: LIDOCAINE 5% TOPICAL PATCH TP SCH (10:11)
[2016-06-10] MEDS: BACITRACIN 0.9 GM PACKET TP SCH ×2 (10:11→21:17)
[2016-06-10] MEDS: traZODone HCL 100 MG TABLET (FP) PO SCH (21:17)
[2016-06-10] MEDS: THIAMINE HCL 100 MG TABLET (FP) PO SCH (21:17)
[2016-06-10] MEDS: QUEtiapine FUMARATE 300 MG TABLET PO SCH (21:17)
[2016-06-11] MEDS: DOCUSATE SODIUM 100 MG CAPSULE (FP) PO SCH ×2 (10:11→21:11)
[2016-06-11] MEDS: PANTOPRAZOLE 20 MG TABLET (FP) PO SCH (10:11)
[2016-06-11] MEDS: PRENATAL VITAMINS W/ FOLIC ACID TABLET (FP) PO SCH (10:11)
[2016-06-11] MEDS: LIDOCAINE 5% TOPICAL PATCH TP SCH (10:11)
[2016-06-11] MEDS: SERTRALINE HCL 50 MG TABLET (FP) PO SCH (10:11)
[2016-06-11] MEDS: BACITRACIN 0.9 GM PACKET TP SCH ×2 (10:11→21:11)
[2016-06-11] MEDS: ACETAMINOPHEN 325 MG TABLET (FP) PO PRN ×2 (10:12→21:13)
[2016-06-11] MEDS: THIAMINE HCL 100 MG TABLET (FP) PO SCH (21:11)
[2016-06-11] MEDS: QUEtiapine FUMARATE 300 MG TABLET PO SCH (21:12)
[2016-06-11] MEDS: traZODone HCL 100 MG TABLET (FP) PO SCH (21:12)
[2016-06-12] MEDS: LIDOCAINE 5% TOPICAL PATCH TP SCH (10:02)
[2016-06-12] MEDS: BACITRACIN 0.9 GM PACKET TP SCH ×2 (10:02→21:17)
[2016-06-12] MEDS: SERTRALINE HCL 50 MG TABLET (FP) PO SCH (10:03)
[2016-06-12] MEDS: PRENATAL VITAMINS W/ FOLIC ACID TABLET (FP) PO SCH (10:03)
[2016-06-12] MEDS: PANTOPRAZOLE 20 MG TABLET (FP) PO SCH (10:03)
[2016-06-12] MEDS: DOCUSATE SODIUM 100 MG CAPSULE (FP) PO SCH ×2 (10:03→21:17)
[2016-06-12] MEDS: THIAMINE HCL 100 MG TABLET (FP) PO SCH (21:17)
[2016-06-12] MEDS: QUEtiapine FUMARATE 300 MG TABLET PO SCH (21:17)
[2016-06-12] MEDS: traZODone HCL 100 MG TABLET (FP) PO SCH (21:17)
[2016-06-13] MEDS: DOCUSATE SODIUM 100 MG CAPSULE (FP) PO SCH ×2 (09:56→21:25)
[2016-06-13] MEDS: SERTRALINE HCL 50 MG TABLET (FP) PO SCH (09:56)
[2016-06-13] MEDS: BACITRACIN 0.9 GM PACKET TP SCH ×2 (09:56→21:25)
[2016-06-13] MEDS: LIDOCAINE 5% TOPICAL PATCH TP SCH (09:56)
[2016-06-13] MEDS: PANTOPRAZOLE 20 MG TABLET (FP) PO SCH (09:56)
[2016-06-13] MEDS: PRENATAL VITAMINS W/ FOLIC ACID TABLET (FP) PO SCH (09:56)
[2016-06-13] MEDS: THIAMINE HCL 100 MG TABLET (FP) PO SCH (21:25)
[2016-06-13] MEDS: traZODone HCL 100 MG TABLET (FP) PO SCH (21:25)
[2016-06-13] MEDS: QUEtiapine FUMARATE 300 MG TABLET PO SCH (21:27)
[2016-06-14] MEDS: ACETAMINOPHEN 325 MG TABLET (FP) PO PRN (08:34)
[2016-06-14] MEDS: PRENATAL VITAMINS W/ FOLIC ACID TABLET (FP) PO SCH (10:01)
[2016-06-14] MEDS: SERTRALINE HCL 50 MG TABLET (FP) PO SCH (10:01)
[2016-06-14] MEDS: BACITRACIN 0.9 GM PACKET TP SCH ×2 (10:01→21:12)
[2016-06-14] MEDS: PANTOPRAZOLE 20 MG TABLET (FP) PO SCH (10:01)
[2016-06-14] MEDS: DOCUSATE SODIUM 100 MG CAPSULE (FP) PO SCH ×2 (10:01→21:12)
[2016-06-14] MEDS: LIDOCAINE 5% TOPICAL PATCH TP SCH (10:02)
[2016-06-14] MEDS: QUEtiapine FUMARATE 300 MG TABLET PO SCH (21:12)
[2016-06-14] MEDS: THIAMINE HCL 100 MG TABLET (FP) PO SCH (21:12)
[2016-06-14] MEDS: traZODone HCL 100 MG TABLET (FP) PO SCH (21:12)
[2016-06-15] MEDS: LIDOCAINE 5% TOPICAL PATCH TP SCH (10:14)
[2016-06-15] MEDS: PANTOPRAZOLE 20 MG TABLET (FP) PO SCH (10:15)
[2016-06-15] MEDS: DOCUSATE SODIUM 100 MG CAPSULE (FP) PO SCH ×2 (10:15→21:08)
[2016-06-15] MEDS: SERTRALINE HCL 50 MG TABLET (FP) PO SCH (10:15)
[2016-06-15] MEDS: BACITRACIN 0.9 GM PACKET TP SCH ×2 (10:15→21:08)
[2016-06-15] MEDS: PRENATAL VITAMINS W/ FOLIC ACID TABLET (FP) PO SCH (10:15)
--- NOTE | 2016-06-15 14:37 | PN ---
S Progress Note Note: U/C&S is positive for Step Agalactiae Dx. : UTI P : Levaquin 500mg x 7d
[2016-06-15] MEDS: LEVOFLOXACIN 500 MG TABLET (FP) PO SCH (15:48)
[2016-06-15] MEDS: traZODone HCL 100 MG TABLET (FP) PO SCH (21:08)
[2016-06-15] MEDS: QUEtiapine FUMARATE 300 MG TABLET PO SCH (21:08)
[2016-06-15] MEDS: THIAMINE HCL 100 MG TABLET (FP) PO SCH (21:08)
[2016-06-16] MEDS: LEVOFLOXACIN 500 MG TABLET (FP) PO SCH (06:13)
[2016-06-16] MEDS: DOCUSATE SODIUM 100 MG CAPSULE (FP) PO SCH ×2 (10:07→21:16)
[2016-06-16] MEDS: PANTOPRAZOLE 20 MG TABLET (FP) PO SCH (10:07)
[2016-06-16] MEDS: PRENATAL VITAMINS W/ FOLIC ACID TABLET (FP) PO SCH (10:07)
[2016-06-16] MEDS: BACITRACIN 0.9 GM PACKET TP SCH ×2 (10:07→21:16)
[2016-06-16] MEDS: SERTRALINE HCL 50 MG TABLET (FP) PO SCH (10:07)
[2016-06-16] MEDS: LIDOCAINE 5% TOPICAL PATCH TP SCH (10:08)
[2016-06-16] MEDS: traZODone HCL 100 MG TABLET (FP) PO SCH (21:16)
[2016-06-16] MEDS: THIAMINE HCL 100 MG TABLET (FP) PO SCH (21:16)
[2016-06-16] MEDS: QUEtiapine FUMARATE 300 MG TABLET PO SCH (21:16)
[2016-06-17] MEDS: LEVOFLOXACIN 500 MG TABLET (FP) PO SCH (06:24)
[2016-06-17] MEDS: LIDOCAINE 5% TOPICAL PATCH TP SCH (10:32)
[2016-06-17] MEDS: PANTOPRAZOLE 20 MG TABLET (FP) PO SCH (10:33)
[2016-06-17] MEDS: BACITRACIN 0.9 GM PACKET TP SCH ×2 (10:33→21:18)
[2016-06-17] MEDS: DOCUSATE SODIUM 100 MG CAPSULE (FP) PO SCH ×2 (10:33→21:18)
[2016-06-17] MEDS: PRENATAL VITAMINS W/ FOLIC ACID TABLET (FP) PO SCH (10:34)
[2016-06-17] MEDS: SERTRALINE HCL 50 MG TABLET (FP) PO SCH (10:34)
--- NOTE | 2016-06-17 16:12 | PN ---
Psychiatric Progress Note Vital Signs: Vital Signs Period Temp Pulse Resp BP Sys/Kwong Pulse Ox Last 24 Hr 98.4 F 83 16-18 113/74 Date of Session: 06/17/16 Chief Complaint:: Discharge visit HPI: Patient addressed Alcohol dependence and Anxiolytic abuse comorbid with Bipolar disorder. ROS: Significant for BA,GERD,H/O Gastric bypass. Current Medications: Active Medications Generic Name Dose Route Start Last Admin Trade Name Freq PRN Reason Stop Dose Admin Acetaminophen 650 mg 05/27/16 14:13 06/14/16 08:34 Tylenol - PO 650 mg Q4H PRN Administration FEVER OR PAIN Al Hydroxide/Mg Hydroxide 30 ml 05/27/16 14:13 Mylanta Oral Suspension - PO Q6H PRN DYSPEPSIA Albuterol Sulfate 2 puff 05/27/16 14:14 Ventolin Hfa Inhaler - IH Q4H PRN WHEEZING Bacitracin 0.9 gm 05/27/16 22:00 06/17/16 10:33 Bacitracin - TP 0.9 gm BID AGATHA Administration Diphenhydramine HCl 50 mg 05/27/16 14:13 06/05/16 21:14 Benadryl - PO 50 mg HSMR1 PRN Administration FOR ITCHING Docusate Sodium 100 mg 05/27/16 22:00 06/17/16 10:33 Colace - PO 100 mg BID AGATHA Administration Eucalyptus/Menthol/Phenol/Sorbitol 1 each 05/27/16 14:13 06/08/16 10:04 Cepastat Lozenge - MM 1 each Q4H PRN Administration SORE THROAT Guaifenesin 10 ml 05/27/16 14:13 06/04/16 08:49 Robitussin Dm - PO 10 ml Q6H PRN Administration COUGH Ibuprofen 400 mg 05/27/16 14:13 06/01/16 06:51 Motrin - PO 400 mg Q6H PRN Administration PAIN Levofloxacin 500 mg 06/15/16 15:36 06/17/16 06:24 Levaquin - PO 500 mg DAILY@0600 AGATHA Administration Lidocaine 1 patch 05/28/16 10:00 06/17/16 10:32 Lidoderm Patch - TP 1 patch DAILY AGATHA Administration Loperamide HCl 4 mg 05/27/16 14:13 Imodium - PO Q6H PRN DIARRHEA Magnesium Hydroxide 30 ml 05/27/16 14:13 Milk Of Magnesia - PO DAILY PRN CONSTIPATION Pantoprazole Sodium 20 mg 05/28/16 10:00 06/17/16 10:33 Protonix - PO 20 mg DAILY AGATHA Administration Multivit/Folic Acid/Iron 1 tab 05/28/16 10:00 06/17/16 10:34 Vitamins (Sjr) - PO 1 tab DAILY AGATHA Administration Pseudoephedrine/Triprolidine 1 combo 05/27/16 14:13 Actifed - PO TID PRN NASAL CONGESTION Quetiapine Fumarate 300 mg 05/27/16 22:00 06/16/16 21:16 Seroquel - PO 300 mg HS AGATHA Administration Sertraline HCl 50 mg 05/28/16 10:00 06/17/16 10:34 Zoloft - PO 50 mg DAILY AGATHA Administration Thiamine HCl 100 mg 05/27/16 22:00 06/16/16 21:16 Vitamin B1 - PO 100 mg HS AGATHA Administration Trazodone HCl 100 mg 06/05/16 22:00 06/16/16 21:16 Desyrel - PO 100 mg HS AGATHA Administration Current Side Effect: No Lab tests ordered: No Lab tests reviewed: Yes Provider note:: Patient will complete this program tomorrow 06/18/16.She has met her treatment goals and will continue to address her issues on outpatient basis at [facility] in the [place].Patient continues to find that current medications:Trazodone 100 mg po hs,Seroquel 300 mg po hs and Zoloft 50 mg po daily help to reduce her depressed mood,anxiety and mood instability.Scripts for 30 days provided. Supportive therapy provided focusing on relapse prevention,coping skills,support utilization to maintain recovery. Patient is stable for discharge tomorrow 06/18/16. Total face to face time:: 30 Mental Status Exam - Mental Status Exam Alert and Oriented to: Time, Place, Person Cognitive Function: Grossly Intact Patient Appearance: Well Groomed Mood: Euthymic Affect: Mood Congruent, Euthymic Patient Behavior: Cooperative Speech Pattern: Clear Voice Loudness: Normal Thought Disorder: Not Present Hallucinations: Denies Suicidal Ideation: Denies Homicidal Ideation: Denies Insight/Judgement: Fair Sleep: Fair Appetite: Fair Muscle strength/Tone: Normal Gait/Station: Normal Psychiatric Treatment Plan - Problem List (1) Alcohol dependence with uncomplicated withdrawal Current Visit: Yes (2) Asthma Current Visit: Yes Qualifiers: (3) Benzodiazepine abuse Current Visit: Yes (4) GERD (gastroesophageal reflux disease) Current Visit: Yes Qualifiers: (5) History of gastric bypass Current Visit: Yes (6) Sacral contusion Current Visit: Yes Qualifiers: (7) Bipolar disorder Current Visit: Yes
[2016-06-17] MEDS: QUEtiapine FUMARATE 300 MG TABLET PO SCH (21:18)
[2016-06-17] MEDS: THIAMINE HCL 100 MG TABLET (FP) PO SCH (21:18)
[2016-06-17] MEDS: traZODone HCL 100 MG TABLET (FP) PO SCH (21:18)
[2016-06-18] MEDS: LEVOFLOXACIN 500 MG TABLET (FP) PO SCH (06:26)
[2016-06-18 07:09] VITALS: BP 125/85; PULSE 79; TEMP 98.2
[2016-06-18] MEDS: SERTRALINE HCL 50 MG TABLET (FP) PO SCH (09:04)
[2016-06-18] MEDS: PANTOPRAZOLE 20 MG TABLET (FP) PO SCH (09:04)
[2016-06-18] MEDS: BACITRACIN 0.9 GM PACKET TP SCH (09:04)
[2016-06-18] MEDS: DOCUSATE SODIUM 100 MG CAPSULE (FP) PO SCH (09:04)
[2016-06-18] MEDS: LIDOCAINE 5% TOPICAL PATCH TP SCH (09:04)
[2016-06-18] MEDS: PRENATAL VITAMINS W/ FOLIC ACID TABLET (FP) PO SCH (09:04)
== END 2016-06-18 10:02 | disposition home or self-care (01) | DRG 895 ==
LOC: YASAS 12:53 → Y3E 12:54
PROVIDERS: ADMIT Psychiatry & Neurology Psychiatry; ATTEND Psychiatry & Neurology Psychiatry
PROC: HZ42ZZZ Group Counseling for Substance Abuse Treatment, Cognitive-Behavioral (ICD-10-PCS; principal; 2016-06-18)
DX: F10.230 Alcohol dependence with withdrawal, uncomplicated (principal); K85.90 Acute pancreatitis without necrosis or infection, unspecified; F13.10 Sedative, hypnotic or anxiolytic abuse, uncomplicated; F31.9 Bipolar disorder, unspecified; J45.909 Unspecified asthma, uncomplicated; K21.9 Gastro-esophageal reflux disease without esophagitis; Z98.84 Bariatric surgery status
CPT/HCPCS: 36415; 80053; 81003; 81015; 82150; 83690; 85027; 87086; 87186; 90732; G0009

== ENCOUNTER 2021-01-31 12:23 | Inpatient (IN) | payer OTHER ==
[2021-01-31] MEDS ORDERED: MAG HYDROX/AL HYDROX/SIMETH 30 ML UNIT-DOSE CUP PO PRN (15:39)
[2021-01-31] MEDS ORDERED: MAGNESIUM CITRATE 300 ML BOTTLE PO PRN (15:39)
[2021-01-31] MEDS ORDERED: IBUPROFEN 400 MG TABLET (FP) PO PRN (15:39)
[2021-01-31] MEDS ORDERED: ACETAMINOPHEN 325 MG TABLET (FP) PO PRN (15:39)
[2021-01-31] MEDS ORDERED: LORazepam 2 MG TABLET PO ONE (15:39)
[2021-01-31] MEDS ORDERED: MAGNESIUM HYDROX 2400MG/30ML ORAL SUSPENSION 30 ML CUP PO PRN (15:39)
[2021-01-31] MEDS ORDERED: BISMUTH SUBSALICYLATE 524 MG/30 ML PO PRN (15:39)
[2021-01-31] MEDS ORDERED: MENTHOL/PHENOL 1 EACH UD MM PRN (15:39)
[2021-01-31] MEDS ORDERED: NICOTINE 10 MG CARTRIDGE (INHALER) IH PRN (15:39)
[2021-01-31] MEDS ORDERED: LORazepam 1 MG TABLET PO PRN (15:39)
[2021-01-31] MEDS ORDERED: ALBUTEROL SO4 HFA INHALER IH PRN (15:44)
[2021-01-31 16:10] VITALS: BMI 29.2
[2021-01-31] MEDS: LORazepam 2 MG TABLET PO SCH ×2 (17:54→22:38)
[2021-01-31] MEDS: hydrOXYzine PAMOATE 25 MG CAPSULE (FP) PO SCH ×2 (17:55→22:37)
[2021-01-31] MEDS: ONDANSETRON *ODT* 4 MG TABLET SL PRN (17:55)
[2021-01-31] MEDS ORDERED: MELATONIN 5 MG TABLETS PO SCH (22:00)
[2021-01-31] MEDS: BUDESONIDE/FORMETEROL FUMARATE 160/4.5 mcg INHALER IH SCH (22:37)
[2021-01-31] MEDS: PANTOPRAZOLE 40 MG TABLET PO SCH (22:37)
[2021-01-31] MEDS: THIAMINE HCL 100 MG TABLET (FP) PO SCH (22:38)
[2021-01-31] MEDS: METHOCARBAMOL 500 MG TABLET PO PRN (22:38)
[2021-01-31] MEDS: MONTELUKAST NA 10 MG TABLET PO SCH (22:38)
[2021-02-01] MEDS: LORazepam 2 MG TABLET PO SCH ×4 (05:24→22:44)
[2021-02-01] MEDS: hydrOXYzine PAMOATE 25 MG CAPSULE (FP) PO SCH ×5 (05:24→22:44)
[2021-02-01] MEDS: PANTOPRAZOLE 40 MG TABLET PO SCH ×2 (10:26→22:43)
[2021-02-01] MEDS: PRENATAL VITAMINS W/ FOLIC ACID TABLET (FP) PO SCH (10:26)
[2021-02-01] MEDS: BUDESONIDE/FORMETEROL FUMARATE 160/4.5 mcg INHALER IH SCH ×2 (10:28→22:44)
[2021-02-01] MEDS ORDERED: FLU VACC QS2021-22(6MOS UP)/PF 60 MCG/0.5 ML SYRINGE IM ONE (12:00)
[2021-02-01] MEDS: traZODone HCL 100 MG TABLET (FP) PO SCH (22:43)
[2021-02-01] MEDS: MONTELUKAST NA 10 MG TABLET PO SCH (22:43)
[2021-02-01] MEDS: THIAMINE HCL 100 MG TABLET (FP) PO SCH (22:43)
[2021-02-01 22:57] LABS: URINE APPEARANCE CLEAR; URINE BILIRUBIN NEGATIVE (NEGATIVE); URINE COLOR YELLOW; URINE GLUCOSE (UA) NEGATIVE (NEGATIVE); URINE KETONE NEGATIVE (NEGATIVE); URINE LEUK ESTERASE NEGATIVE (NEGATIVE); URINE NITRITE NEGATIVE (NEGATIVE); URINE PROTEIN NEGATIVE (NEGATIVE); URINE UROBILINOGEN 0.2 mg/dL (0.2-1.0)
[2021-02-02] MEDS: hydrOXYzine PAMOATE 25 MG CAPSULE (FP) PO SCH ×2 (05:45→10:12)
[2021-02-02] MEDS: LORazepam 1 MG TABLET PO SCH ×4 (05:46→22:19)
[2021-02-02] MEDS: ACETAMINOPHEN 325 MG TABLET (FP) PO PRN ×2 (05:47→17:20)
[2021-02-02] MEDS: ESCITALOPRAM OXALATE 20 MG TABLET PO SCH (10:11)
[2021-02-02] MEDS: PRENATAL VITAMINS W/ FOLIC ACID TABLET (FP) PO SCH (10:11)
[2021-02-02] MEDS: PANTOPRAZOLE 40 MG TABLET PO SCH ×2 (10:12→22:20)
[2021-02-02] MEDS: METHOCARBAMOL 500 MG TABLET PO PRN (10:12)
[2021-02-02] MEDS: BUDESONIDE/FORMETEROL FUMARATE 160/4.5 mcg INHALER IH SCH ×2 (10:14→22:20)
[2021-02-02] MEDS ORDERED: FAMOTIDINE 10 MG TABLET PO SCH (13:00)
[2021-02-02] MEDS: GABAPENTIN 100 MG CAPSULE PO SCH ×2 (13:13→20:23)
[2021-02-02] MEDS ORDERED: traZODone HCL 50 MG TABLET (FP) ONE (21:27)
[2021-02-02] MEDS: THIAMINE HCL 100 MG TABLET (FP) PO SCH (22:00)
[2021-02-02] MEDS: MONTELUKAST NA 10 MG TABLET PO SCH (22:20)
[2021-02-02] MEDS: traZODone HCL 100 MG TABLET (FP) PO SCH (22:22)
[2021-02-03] MEDS ORDERED: GABAPENTIN 100 MG CAPSULE PO SCH (06:00)
[2021-02-03] MEDS: LORazepam 0.5 MG TABLET PO SCH ×5 (06:29→22:31)
[2021-02-03] MEDS ORDERED: DIVALPROEX SODIUM 500 MG TABLET E.C. PO ONE (10:00)
[2021-02-03] MEDS: BUDESONIDE/FORMETEROL FUMARATE 160/4.5 mcg INHALER IH SCH ×2 (10:10→22:32)
[2021-02-03] MEDS: PRENATAL VITAMINS W/ FOLIC ACID TABLET (FP) PO SCH (10:11)
[2021-02-03] MEDS: ESCITALOPRAM OXALATE 20 MG TABLET PO SCH (10:11)
[2021-02-03] MEDS: PANTOPRAZOLE 40 MG TABLET PO SCH ×2 (10:11→22:31)
[2021-02-03] MEDS: ACETAMINOPHEN 325 MG TABLET (FP) PO PRN ×2 (10:13→14:30)
[2021-02-03] MEDS: ONDANSETRON *ODT* 4 MG TABLET SL PRN (10:15)
[2021-02-03] MEDS: METHOCARBAMOL 500 MG TABLET PO PRN (10:16)
[2021-02-03] MEDS ORDERED: LORazepam 0.5 MG TABLET PO PRN ×2 (11:01)
[2021-02-03 11:06] LABS: ALBUMIN 2.9 g/dl (3.4-5.0); BLOOD UREA NITROGEN 26.4 mg/dL (7-18); HEMATOCRIT 38.4 % (32.4-45.2); HEMOGLOBIN 12.9 GM/dL (10.7-15.3); MCH 30.4 pg (25.7-33.7); MCHC 33.6 g/dl (32.0-36.0); MEAN CELL VOLUME 90.7 fl (80-96); MEAN PLT VOLUME 10.5 fl (7.5-11.1); PLATELET COUNT 174 10^3/uL (134-434); RBC 4.23 M/mm3 (3.60-5.2); RDW 15.5 % (11.6-15.6); WHITE BLOOD COUNT 5.4 K/mm3 (4.0-10.0)
[2021-02-03 11:08] LABS: CREATININE 0.9 mg/dL (0.55-1.3)
[2021-02-03 11:10] LABS: BILIRUBIN,TOTAL 0.3 mg/dL (0.2-1)
[2021-02-03 11:11] LABS: TOT PROT 6.4 g/dl (6.4-8.2)
[2021-02-03] MEDS: DIVALPROEX SODIUM 500 MG TABLET E.C. PO SCH ×2 (14:30→22:31)
[2021-02-03] MEDS: traZODone HCL 100 MG TABLET (FP) PO SCH (22:31)
[2021-02-03] MEDS: THIAMINE HCL 100 MG TABLET (FP) PO SCH (22:31)
[2021-02-03] MEDS: MONTELUKAST NA 10 MG TABLET PO SCH (22:31)
[2021-02-04] MEDS ORDERED: LORazepam 0.5 MG TABLET PO ONE (05:00)
[2021-02-04] MEDS: DIVALPROEX SODIUM 500 MG TABLET E.C. PO SCH ×3 (06:02→22:16)
[2021-02-04] MEDS: PRENATAL VITAMINS W/ FOLIC ACID TABLET (FP) PO SCH (10:17)
[2021-02-04] MEDS: ESCITALOPRAM OXALATE 20 MG TABLET PO SCH (10:18)
[2021-02-04] MEDS: BUDESONIDE/FORMETEROL FUMARATE 160/4.5 mcg INHALER IH SCH ×2 (10:19→22:16)
[2021-02-04] MEDS: PANTOPRAZOLE 40 MG TABLET PO SCH ×2 (10:20→22:16)
[2021-02-04] MEDS: METHOCARBAMOL 500 MG TABLET PO PRN ×2 (10:21→22:16)
[2021-02-04] MEDS: ACETAMINOPHEN 325 MG TABLET (FP) PO PRN (11:37)
[2021-02-04] MEDS: MONTELUKAST NA 10 MG TABLET PO SCH (22:16)
[2021-02-04] MEDS: traZODone HCL 100 MG TABLET (FP) PO SCH (22:16)
[2021-02-04] MEDS: THIAMINE HCL 100 MG TABLET (FP) PO SCH (22:16)
[2021-02-05] MEDS: DIVALPROEX SODIUM 500 MG TABLET E.C. PO SCH (05:51)
[2021-02-05] MEDS: PRENATAL VITAMINS W/ FOLIC ACID TABLET (FP) PO SCH (09:58)
[2021-02-05] MEDS: BUDESONIDE/FORMETEROL FUMARATE 160/4.5 mcg INHALER IH SCH (09:59)
[2021-02-05] MEDS: PANTOPRAZOLE 40 MG TABLET PO SCH (09:59)
[2021-02-05] MEDS: ESCITALOPRAM OXALATE 20 MG TABLET PO SCH (09:59)
[2021-02-05 11:57] VITALS: BP 141/81; PULSE 72; TEMP 98.1
== END 2021-02-05 10:01 | disposition home or self-care (01) | DRG 897 ==
LOC: YASAS 12:23 → Y6N 16:29
PROVIDERS: ADMIT Allergy & Immunology; ATTEND Allergy & Immunology
PROC: HZ2ZZZZ Detoxification Services for Substance Abuse Treatment (ICD-10-PCS; principal; 2021-01-31)
DX: F10.230 Alcohol dependence with withdrawal, uncomplicated (principal); F31.89 Other bipolar disorder; F19.24 Other psychoactive substance dependence with psychoactive substance-induced mood disorder; J45.20 Mild intermittent asthma, uncomplicated; K21.9 Gastro-esophageal reflux disease without esophagitis; G40.909 Epilepsy, unspecified, not intractable, without status epilepticus; R03.0 Elevated blood-pressure reading, without diagnosis of hypertension; M06.9 Rheumatoid arthritis, unspecified; Z98.84 Bariatric surgery status
CPT/HCPCS: 36415; 80053; 80164; 81003; 85027; 86780; 87086; 90686; 93005; 93010; C9803; G0008; Q0162; U0003; U0005

== ENCOUNTER 2022-08-12 13:06 | Inpatient (IN) | payer OTHER ==
[2022-08-12 13:30] VITALS: BMI 26.2
[2022-08-12] MEDS ORDERED: IBUPROFEN 400 MG TABLET (FP) PO PRN (16:49)
[2022-08-12] MEDS ORDERED: ACETAMINOPHEN 325 MG TABLET (FP) PO PRN (16:49)
[2022-08-12] MEDS ORDERED: BENZONATATE 200 MG CAPSULE PO PRN (16:49)
[2022-08-12] MEDS ORDERED: LOPERAMIDE HCL 2 MG CAPSULE PO PRN (16:49)
[2022-08-12] MEDS ORDERED: POLYETHYLENE GLYCOL (HEALTHYLAX) 3350 17 GM PACKET PO PRN (16:49)
[2022-08-12] MEDS ORDERED: MAGNESIUM HYDROX 2400MG/30ML ORAL SUSPENSION 30 ML CUP PO PRN (16:49)
[2022-08-12] MEDS ORDERED: NALOXONE HCL 0.4 MG/ML VIAL IM PRN (16:49)
[2022-08-12] MEDS ORDERED: NALOXONE HCL (KLOXXADO) 8 MG SPRAY NS PRN (16:49)
[2022-08-12] MEDS ORDERED: DICYCLOMINE HCL 10 MG CAPSULE PO PRN (16:49)
[2022-08-12] MEDS ORDERED: ONDANSETRON *ODT* 4 MG TABLET SL PRN (16:49)
[2022-08-12] MEDS ORDERED: BISMUTH SUBSALICYLATE 524 MG/30 ML PO PRN (16:49)
[2022-08-12] MEDS ORDERED: NICOTINE 10 MG CARTRIDGE (INHALER) IH PRN (16:49)
[2022-08-12] MEDS ORDERED: BENZOCAINE/MENTHOL (CHLORASEPTIC ) LOZENGE MM PRN (16:49)
[2022-08-12] MEDS ORDERED: IBUPROFEN 600 MG TABLET (FP) PO PRN (16:49)
[2022-08-12] MEDS ORDERED: guaiFENesin 600 MG TABLET.ER (FP) PO PRN (16:49)
[2022-08-12] MEDS: diazePAM 5 MG TABLET PO SCH ×2 (17:00→22:09)
[2022-08-12] MEDS: hydrOXYzine PAMOATE 25 MG CAPSULE (FP) PO PRN (18:11)
[2022-08-12] MEDS: diazePAM 5 MG TABLET PO PRN (19:37)
[2022-08-12] MEDS: MELATONIN 5 MG TABLETS PO SCH (22:08)
[2022-08-12] MEDS: THIAMINE HCL 100 MG TABLET (FP) PO SCH (22:08)
[2022-08-12] MEDS: METHOCARBAMOL 500 MG TABLET PO PRN (22:09)
[2022-08-12] MEDS ORDERED: ALBUTEROL SO4 HFA INHALER IH PRN (22:58)
[2022-08-12] MEDS ORDERED: GABAPENTIN 300 MG CAPSULE PO ONE (23:08)
[2022-08-12] MEDS: LATANOPROST 0.005% OPHTH SOLN 2.5ML BOTTLE OU SCH (23:34)
[2022-08-12] MEDS: DIVALPROEX SODIUM 500 MG TABLET E.C. PO SCH (23:34)
[2022-08-12] MEDS: HYDROCORTISONE 2.5% TOPICAL CREAM 30 GM TUBE TP SCH (23:35)
[2022-08-12] MEDS: TIMOLOL 0.5% OU SCH (23:36)
[2022-08-13 00:45] LABS: EPI CELLS 0 /uL (0-25.1); HYALINE CASTS 0 /uL (0-3.1); PH,URINE 5.5 (5.0-8.0); URINE APPEARANCE CLEAR; URINE BACTERIA 0 /uL (0-1359); URINE BILIRUBIN NEGATIVE (NEGATIVE); URINE COLOR YELLOW; URINE GLUCOSE (UA) NEGATIVE (NEGATIVE); URINE KETONE NEGATIVE (NEGATIVE); URINE LEUK ESTERASE 2+ (NEGATIVE); URINE NITRITE NEGATIVE (NEGATIVE); URINE PROTEIN NEGATIVE (NEGATIVE); URINE RBC 3 /uL (0-23.9); URINE WBC 0 /uL (0-25.8)
[2022-08-13] MEDS: diazePAM 5 MG TABLET PO PRN ×2 (02:25→14:14)
[2022-08-13] MEDS: DIVALPROEX SODIUM 500 MG TABLET E.C. PO SCH ×3 (05:22→22:20)
[2022-08-13] MEDS: diazePAM 5 MG TABLET PO SCH ×4 (05:23→22:21)
[2022-08-13] MEDS: hydrOXYzine PAMOATE 25 MG CAPSULE (FP) PO PRN (05:24)
[2022-08-13] MEDS: FERROUS SO4 325 MG TABLET (FP) PO SCH ×2 (09:27→17:38)
[2022-08-13] MEDS: PANTOPRAZOLE 20 MG TABLET PO SCH (10:27)
[2022-08-13] MEDS: PRENATAL VITAMINS W/ FOLIC ACID TABLET (FP) PO SCH (10:27)
[2022-08-13] MEDS: HYDROCORTISONE 2.5% TOPICAL CREAM 30 GM TUBE TP SCH ×2 (10:28→22:40)
[2022-08-13] MEDS: NYSTATIN POWDER 100,000 UNITS/GM - 15 GM TOPICAL POWDER TP SCH ×2 (10:28→22:19)
[2022-08-13] MEDS: FOLIC ACID 1 MG TABLET (FP) PO SCH (10:29)
[2022-08-13] MEDS: TIMOLOL 0.5% OU SCH (10:30)
[2022-08-13] MEDS: MAG HYDROX/AL HYDROX/SIMETH 30 ML UNIT-DOSE CUP PO PRN (14:14)
[2022-08-13] MEDS: METHOCARBAMOL 500 MG TABLET PO PRN (17:43)
[2022-08-13] MEDS ORDERED: traZODone HCL 50 MG TABLET (FP) PO SCH ×2 (22:00)
[2022-08-13] MEDS: LATANOPROST 0.005% OPHTH SOLN 2.5ML BOTTLE OU SCH (22:20)
[2022-08-13] MEDS: MELATONIN 5 MG TABLETS PO SCH (22:20)
[2022-08-13] MEDS: traZODone HCL 100 MG TABLET (FP) PO SCH (22:20)
[2022-08-13] MEDS: THIAMINE HCL 100 MG TABLET (FP) PO SCH (22:20)
[2022-08-13] MEDS: GABAPENTIN 300 MG CAPSULE PO PRN (22:20)
[2022-08-14] MEDS: diazePAM 5 MG TABLET PO SCH ×3 (06:04→22:18)
[2022-08-14] MEDS: DIVALPROEX SODIUM 500 MG TABLET E.C. PO SCH ×3 (06:04→22:22)
[2022-08-14] MEDS: FOLIC ACID 1 MG TABLET (FP) PO SCH (10:13)
[2022-08-14] MEDS: diazePAM 5 MG TABLET PO PRN ×2 (10:13→20:15)
[2022-08-14] MEDS: FLUoxetine HCL 20 MG CAPSULE PO SCH (10:13)
[2022-08-14] MEDS: PRENATAL VITAMINS W/ FOLIC ACID TABLET (FP) PO SCH (10:13)
[2022-08-14] MEDS: PANTOPRAZOLE 20 MG TABLET PO SCH (10:13)
[2022-08-14] MEDS: NYSTATIN POWDER 100,000 UNITS/GM - 15 GM TOPICAL POWDER TP SCH ×2 (10:14→22:20)
[2022-08-14] MEDS: HYDROCORTISONE 2.5% TOPICAL CREAM 30 GM TUBE TP SCH ×2 (10:14→22:54)
[2022-08-14] MEDS: TIMOLOL 0.5% OU SCH (10:15)
[2022-08-14] MEDS: FERROUS SO4 325 MG TABLET (FP) PO SCH ×2 (10:16→17:34)
[2022-08-14 11:36] LABS: HEMATOCRIT 34.7 % (32.4-45.2); HEMOGLOBIN 11.3 GM/dL (10.7-15.3); MCHC 32.5 g/dl (32.0-36.0); MEAN CELL VOLUME 83.1 fl (80-96); MEAN PLT VOLUME 10.3 fl (7.5-11.1); PLATELET COUNT 232 10^3/uL (134-434); RBC 4.17 M/mm3 (3.60-5.2); RDW 19.2 % (11.6-15.6); WHITE BLOOD COUNT 4.9 K/mm3 (4.0-10.0)
[2022-08-14 11:55] LABS: POTASSIUM 4.5 mmol/L (3.5-5.1)
[2022-08-14 12:24] LABS: BLOOD UREA NITROGEN 13.7 mg/dL (7-18)
[2022-08-14 12:27] LABS: CREATININE 0.9 mg/dL (0.55-1.3)
[2022-08-14 12:28] LABS: BILIRUBIN,TOTAL 0.8 mg/dL (0.2-1)
[2022-08-14] MEDS: hydrOXYzine PAMOATE 25 MG CAPSULE (FP) PO PRN (21:43)
[2022-08-14] MEDS: traZODone HCL 100 MG TABLET (FP) PO SCH (22:17)
[2022-08-14] MEDS: METHOCARBAMOL 500 MG TABLET PO PRN (22:17)
[2022-08-14] MEDS: THIAMINE HCL 100 MG TABLET (FP) PO SCH (22:17)
[2022-08-14] MEDS: GABAPENTIN 300 MG CAPSULE PO PRN (22:22)
[2022-08-14] MEDS: MELATONIN 5 MG TABLETS PO SCH (22:23)
[2022-08-14] MEDS: LATANOPROST 0.005% OPHTH SOLN 2.5ML BOTTLE OU SCH (22:53)
[2022-08-15] MEDS: DIVALPROEX SODIUM 500 MG TABLET E.C. PO SCH ×3 (05:56→22:17)
[2022-08-15] MEDS: diazePAM 5 MG TABLET PO SCH ×2 (05:56→17:38)
[2022-08-15] MEDS: FERROUS SO4 325 MG TABLET (FP) PO SCH ×2 (10:00→18:09)
[2022-08-15] MEDS: HYDROCORTISONE 2.5% TOPICAL CREAM 30 GM TUBE TP SCH ×2 (10:03→22:18)
[2022-08-15] MEDS: PANTOPRAZOLE 20 MG TABLET PO SCH (10:04)
[2022-08-15] MEDS: FLUoxetine HCL 20 MG CAPSULE PO SCH (10:04)
[2022-08-15] MEDS: PRENATAL VITAMINS W/ FOLIC ACID TABLET (FP) PO SCH (10:04)
[2022-08-15] MEDS: FOLIC ACID 1 MG TABLET (FP) PO SCH (10:04)
[2022-08-15] MEDS: NYSTATIN POWDER 100,000 UNITS/GM - 15 GM TOPICAL POWDER TP SCH ×2 (10:05→22:18)
[2022-08-15] MEDS: TIMOLOL 0.5% OU SCH (10:06)
[2022-08-15] MEDS: diazePAM 5 MG TABLET PO PRN (12:58)
[2022-08-15] MEDS: MAG HYDROX/AL HYDROX/SIMETH 30 ML UNIT-DOSE CUP PO PRN (17:40)
[2022-08-15] MEDS: MELATONIN 5 MG TABLETS PO SCH (22:17)
[2022-08-15] MEDS: THIAMINE HCL 100 MG TABLET (FP) PO SCH (22:17)
[2022-08-15] MEDS: traZODone HCL 100 MG TABLET (FP) PO SCH (22:17)
[2022-08-15] MEDS: LATANOPROST 0.005% OPHTH SOLN 2.5ML BOTTLE OU SCH (22:18)
[2022-08-15] MEDS: GABAPENTIN 300 MG CAPSULE PO PRN (22:21)
[2022-08-16] MEDS ORDERED: diazePAM 5 MG TABLET PO ONE (06:00)
[2022-08-16] MEDS: DIVALPROEX SODIUM 500 MG TABLET E.C. PO SCH (06:16)
[2022-08-16] MEDS: PRENATAL VITAMINS W/ FOLIC ACID TABLET (FP) PO SCH (09:45)
[2022-08-16] MEDS: FLUoxetine HCL 20 MG CAPSULE PO SCH (09:45)
[2022-08-16] MEDS: FERROUS SO4 325 MG TABLET (FP) PO SCH (09:45)
[2022-08-16] MEDS: PANTOPRAZOLE 20 MG TABLET PO SCH (09:45)
[2022-08-16] MEDS: FOLIC ACID 1 MG TABLET (FP) PO SCH (09:45)
[2022-08-16] MEDS: HYDROCORTISONE 2.5% TOPICAL CREAM 30 GM TUBE TP SCH (09:46)
[2022-08-16] MEDS: NYSTATIN POWDER 100,000 UNITS/GM - 15 GM TOPICAL POWDER TP SCH (09:46)
[2022-08-16] MEDS: TIMOLOL 0.5% OU SCH (09:46)
[2022-08-16 10:37] VITALS: BP 109/72; PULSE 62; RESP 18; TEMP 96.9
== END 2022-08-16 11:30 | disposition other institution (70) | DRG 897 ==
LOC: YASAS 13:06 → Y3N 17:10
PROVIDERS: ADMIT Allergy & Immunology; ATTEND Surgery
PROC: HZ2ZZZZ Detoxification Services for Substance Abuse Treatment (ICD-10-PCS; principal; 2022-08-12)
DX: F10.230 Alcohol dependence with withdrawal, uncomplicated (principal); F17.210 Nicotine dependence, cigarettes, uncomplicated; F43.10 Post-traumatic stress disorder, unspecified; G47.00 Insomnia, unspecified; G40.909 Epilepsy, unspecified, not intractable, without status epilepticus; K21.9 Gastro-esophageal reflux disease without esophagitis; M06.9 Rheumatoid arthritis, unspecified; M79.7 Fibromyalgia; M54.40 Lumbago with sciatica, unspecified side; Z86.69 Personal history of other diseases of the nervous system and sense organs; Z86.59 Personal history of other mental and behavioral disorders
CPT/HCPCS: 36415; 80053; 80164; 81003; 85027; 86780; 87811; 93005; 93010; C9803-CS; U0003; U0005

== ENCOUNTER 2023-06-16 11:27 | Inpatient (IN) | payer OTHER ==
[2023-06-16 11:48] VITALS: BMI 28.3
[2023-06-16] MEDS ORDERED: NICOTINE POLACRILEX 2 MG GUM BUC PRN (14:21)
[2023-06-16] MEDS ORDERED: P-EPHED 60MG/TRIPROLIDI 2.5MG TABLET PO PRN (14:21)
[2023-06-16] MEDS ORDERED: MAGNESIUM HYDROX 2400MG/30ML ORAL SUSPENSION 30 ML CUP PO PRN (14:21)
[2023-06-16] MEDS ORDERED: IBUPROFEN 400 MG TABLET (FP) PO PRN (14:21)
[2023-06-16] MEDS ORDERED: BISMUTH SUBSALICYLATE 262 MG/15 ML BTL PO PRN (14:21)
[2023-06-16] MEDS ORDERED: guaiFENesin 600 MG TABLET.ER (FP) PO PRN (14:21)
[2023-06-16] MEDS ORDERED: ONDANSETRON *ODT* 4 MG TABLET SL PRN (14:21)
[2023-06-16] MEDS ORDERED: ACETAMINOPHEN 325 MG TABLET (FP) PO PRN (14:21)
[2023-06-16] MEDS ORDERED: BENZOCAINE/MENTHOL (CHLORASEPTIC ) LOZENGE MM PRN (14:21)
[2023-06-16] MEDS ORDERED: DICYCLOMINE HCL 10 MG CAPSULE PO PRN (14:21)
[2023-06-16] MEDS ORDERED: LOPERAMIDE HCL 2 MG CAPSULE PO PRN (14:21)
[2023-06-16] MEDS ORDERED: BENZONATATE 200 MG CAPSULE PO PRN (14:21)
[2023-06-16] MEDS: diazePAM 5 MG TABLET PO PRN (18:24)
[2023-06-16] MEDS: BRIMONIDINE TARTRATE 0.2% OPHTHALMIC 5 ML BOTTLE OU SCH (22:28)
[2023-06-16] MEDS: MELATONIN 5 MG TABLETS PO SCH (22:28)
[2023-06-16] MEDS: diazePAM 5 MG TABLET PO SCH (22:28)
[2023-06-16] MEDS: THIAMINE HCL 100 MG TABLET (FP) PO SCH (22:28)
[2023-06-16] MEDS: TIMOLOL 0.5% OPHTHALMIC SOL 5 ML BOTTLE OU SCH (22:30)
[2023-06-16] MEDS: METHOCARBAMOL 500 MG TABLET PO PRN (22:36)
[2023-06-17] MEDS: FLUoxetine HCL 20 MG CAPSULE PO SCH (10:23)
[2023-06-17] MEDS: PRENATAL VITAMINS W/ FOLIC ACID TABLET (FP) PO SCH (10:23)
[2023-06-17] MEDS: amLODIPine BESYLATE 10 MG TABLET (FP) PO SCH (10:23)
[2023-06-17] MEDS: PANTOPRAZOLE 20 MG TABLET PO SCH (10:23)
[2023-06-17] MEDS: POLYETHYLENE GLYCOL (HEALTHYLAX) 3350 17 GM PACKET PO PRN (10:24)
[2023-06-17] MEDS: LOSARTAN POTASSIUM 25 MG TABLET PO SCH (10:46)
[2023-06-17] MEDS: MEMANTINE HCL 10 MG TABLET (FP) PO SCH (11:00)
[2023-06-17] MEDS: SOLIFENACIN SUCCINATE 5 MG TAB PO SCH (11:00)
[2023-06-17 11:44] LABS: HEMATOCRIT 31.6 % (32.4-45.2); MCH 24.6 pg (25.7-33.7); MCHC 31.7 g/dl (32.0-36.0); MEAN CELL VOLUME 77.4 fl (80-96); MEAN PLT VOLUME 9.4 fl (7.5-11.1); PLATELET COUNT 342 10^3/uL (134-434); RBC 4.08 M/mm3 (3.60-5.2); RDW 20.1 % (11.6-15.6); WHITE BLOOD COUNT 5.8 K/mm3 (4.0-10.0)
[2023-06-17 11:51] LABS: POTASSIUM 4.3 mmol/L (3.5-5.1)
[2023-06-17 11:59] LABS: CALCIUM 8.4 mg/dL (8.5-10.1)
[2023-06-17 12:00] LABS: ALBUMIN 2.9 g/dl (3.4-5.0)
[2023-06-17 12:04] LABS: BILIRUBIN,TOTAL 0.6 mg/dL (0.2-1); TOT PROT 6.2 g/dl (6.4-8.2)
[2023-06-17 12:06] LABS: CREATININE 0.8 mg/dL (0.55-1.3)
[2023-06-17] MEDS: LIPASE/PROTEASE/AMYLASE 6,000 UNIT CAPSULE PO SCH (17:24)
[2023-06-17] MEDS: MAG HYDROX/AL HYDROX/SIMETH 30 ML UNIT-DOSE CUP PO PRN (17:25)
[2023-06-17 21:52] LABS: HIV INTERPRETATION NEGATIVE (NEGATIVE)
[2023-06-17] MEDS: traZODone HCL 50 MG TABLET (FP) PO SCH (22:45)
[2023-06-18] MEDS: diazePAM 5 MG TABLET PO SCH (05:48)
[2023-06-18] MEDS: IBUPROFEN 600 MG TABLET (FP) PO PRN (13:58)
[2023-06-19] MEDS: diazePAM 5 MG TABLET PO SCH (05:38)
[2023-06-19] MEDS: ALBUTEROL SO4 HFA INHALER IH PRN (06:47)
[2023-06-19] MEDS: DOCUSATE SODIUM 100 MG CAPSULE (FP) PO PRN (22:33)
[2023-06-20] MEDS: diazePAM 5 MG TABLET PO ONE (05:36)
[2023-06-20 09:31] VITALS: BP 123/71; PULSE 61; RESP 16; TEMP 97.8
[2023-06-20] MEDS: BISACODYL 5 MG TABLET.DR (FP) PO PRN (09:50)
== END 2023-06-20 10:12 | disposition other institution (70) | DRG 897 ==
LOC: YASAS 11:27 → Y6N 15:11
PROVIDERS: ADMIT Allergy & Immunology; ATTEND Surgery
PROC: HZ2ZZZZ Detoxification Services for Substance Abuse Treatment (ICD-10-PCS; principal; 2023-06-16)
DX: F10.230 Alcohol dependence with withdrawal, uncomplicated (principal); K86.0 Alcohol-induced chronic pancreatitis; F17.210 Nicotine dependence, cigarettes, uncomplicated; F31.9 Bipolar disorder, unspecified; F41.9 Anxiety disorder, unspecified; F42.4 Excoriation (skin-picking) disorder; H40.10X0 Unspecified open-angle glaucoma, stage unspecified; I10 Essential (primary) hypertension; J45.20 Mild intermittent asthma, uncomplicated; K21.9 Gastro-esophageal reflux disease without esophagitis; Z98.84 Bariatric surgery status; Z99.89 Dependence on other enabling machines and devices
CPT/HCPCS: 36415; 80053; 80164; 80305; 85027; 86780; 87389; 87635; 87811

== ENCOUNTER 2023-07-16 11:14 | Inpatient (IN) | payer OTHER ==
[2023-07-16 11:44] VITALS: BMI 26.6
[2023-07-16] MEDS ORDERED: MAG HYDROX/AL HYDROX/SIMETH 30 ML UNIT-DOSE CUP PO PRN (12:03)
[2023-07-16] MEDS ORDERED: hydrOXYzine PAMOATE 25 MG CAPSULE (FP) PO PRN (12:03)
[2023-07-16] MEDS ORDERED: LOPERAMIDE HCL 2 MG CAPSULE PO PRN (12:03)
[2023-07-16] MEDS ORDERED: ACETAMINOPHEN 325 MG TABLET (FP) PO PRN (12:03)
[2023-07-16] MEDS ORDERED: BISMUTH SUBSALICYLATE 524 MG/30 ML PO PRN (12:03)
[2023-07-16] MEDS ORDERED: NALOXONE HCL (KLOXXADO) 8 MG SPRAY NS PRN (12:03)
[2023-07-16] MEDS ORDERED: NALOXONE HCL 0.4 MG/ML VIAL IM PRN (12:03)
[2023-07-16] MEDS ORDERED: IBUPROFEN 600 MG TABLET (FP) PO PRN (12:03)
[2023-07-16] MEDS ORDERED: NICOTINE POLACRILEX 4 MG GUM BUC PRN (12:03)
[2023-07-16] MEDS ORDERED: POLYETHYLENE GLYCOL (HEALTHYLAX) 3350 17 GM PACKET PO PRN (12:03)
[2023-07-16] MEDS ORDERED: MAGNESIUM HYDROX 2400MG/30ML ORAL SUSPENSION 30 ML CUP PO PRN (12:03)
[2023-07-16] MEDS ORDERED: IBUPROFEN 400 MG TABLET (FP) PO PRN (12:03)
[2023-07-16] MEDS ORDERED: DICYCLOMINE HCL 10 MG CAPSULE PO PRN (12:03)
[2023-07-16] MEDS ORDERED: METHOCARBAMOL 500 MG TABLET PO PRN (12:03)
[2023-07-16] MEDS ORDERED: BENZONATATE 200 MG CAPSULE PO PRN (12:03)
[2023-07-16] MEDS ORDERED: BENZOCAINE/MENTHOL (CHLORASEPTIC ) LOZENGE MM PRN (12:03)
[2023-07-16] MEDS ORDERED: ONDANSETRON *ODT* 4 MG TABLET ONE (12:15)
[2023-07-16] MEDS ORDERED: LORazepam 2 MG TABLET ONE (12:15)
[2023-07-16] MEDS: LORazepam 2 MG TABLET PO ONE (12:21)
[2023-07-16] MEDS: PRENATAL VITAMINS W/ FOLIC ACID TABLET (FP) PO SCH (12:21)
[2023-07-16] MEDS: ONDANSETRON *ODT* 4 MG TABLET SL PRN (12:22)
[2023-07-16] MEDS: GABAPENTIN 100 MG CAPSULE PO SCH (13:53)
[2023-07-16] MEDS: LORazepam 2 MG TABLET PO SCH (17:22)
[2023-07-16] MEDS: LIPASE/PROTEASE/AMYLASE 6,000 UNIT CAPSULE PO SCH (18:25)
[2023-07-16] MEDS: traZODone HCL 100 MG TABLET (FP) PO SCH (22:04)
[2023-07-16] MEDS: THIAMINE HCL 100 MG TABLET (FP) PO SCH (22:05)
[2023-07-16] MEDS: BRIMONIDINE TARTRATE 0.2% OPHTHALMIC 5 ML BOTTLE OU SCH (22:07)
[2023-07-16] MEDS: TIMOLOL 0.5% OPHTHALMIC SOL 5 ML BOTTLE OU SCH (22:07)
[2023-07-16] MEDS: MELATONIN 5 MG TABLETS PO SCH (22:08)
[2023-07-16] MEDS: LACTULOSE 20 GM/30 ML UDC (FOR ORAL USE ONLY) PO SCH (22:09)
[2023-07-17] MEDS: SOLIFENACIN SUCCINATE 5 MG TAB PO SCH (10:29)
[2023-07-17] MEDS: FLUoxetine HCL 20 MG CAPSULE PO SCH (10:35)
[2023-07-17] MEDS: amLODIPine BESYLATE 10 MG TABLET (FP) PO SCH (10:35)
[2023-07-17] MEDS: PANTOPRAZOLE 20 MG TABLET PO SCH (10:35)
[2023-07-17] MEDS: LOSARTAN POTASSIUM 25 MG TABLET PO SCH (10:36)
[2023-07-17] MEDS: guaiFENesin 600 MG TABLET.ER (FP) PO PRN (14:05)
[2023-07-17] MEDS: ALBUTEROL SO4 HFA INHALER IH PRN (14:07)
[2023-07-17] MEDS: LORazepam 1 MG TABLET PO PRN (14:11)
[2023-07-17 15:30] LABS: CHLORIDE 102 mmol/L (98-107); POTASSIUM 3.7 mmol/L (3.5-5.1); SODIUM 136 mmol/L (136-145)
[2023-07-17 15:35] LABS: HEMATOCRIT 33.6 % (32.4-45.2); MCH 22.7 pg (25.7-33.7); MCHC 29.7 g/dl (32.0-36.0); MEAN CELL VOLUME 76.5 fl (80-96); MEAN PLT VOLUME 9.9 fl (7.5-11.1); PLATELET COUNT 223 10^3/uL (134-434); RBC 4.39 M/mm3 (3.60-5.2); RDW 19.5 % (11.6-15.6); WHITE BLOOD COUNT 7.5 K/mm3 (4.0-10.0)
[2023-07-17 15:41] LABS: CALCIUM 8.9 mg/dL (8.5-10.1)
[2023-07-17 15:42] LABS: ALBUMIN 2.9 g/dl (3.4-5.0); ANION GAP 5 mmol/L (4-13); CO2 28 mmol/L (21-32); GLUCOSE,RANDOM 128 mg/dL (74-106)
[2023-07-17 15:44] LABS: SGPT/ALT 30 U/L (13-61)
[2023-07-17 15:45] LABS: CREATININE 1.2 mg/dL (0.55-1.3); SGOT/AST 24 U/L (15-37)
[2023-07-17 15:46] LABS: TOT PROT 6.5 g/dl (6.4-8.2)
[2023-07-17 15:48] LABS: BILIRUBIN,TOTAL 0.4 mg/dL (0.2-1)
[2023-07-17 15:49] LABS: ALK PHOS 142 U/L (45-117)
[2023-07-18] MEDS: LORazepam 1 MG TABLET PO SCH (05:47)
[2023-07-18] MEDS: guaiFENesin 600 MG TABLET.ER (FP) PO SCH (14:15)
[2023-07-19] MEDS ORDERED: LORazepam 0.5 MG TABLET PO PRN
[2023-07-19] MEDS: LORazepam 0.5 MG TABLET PO SCH (06:00)
[2023-07-19] MEDS: OXYBUTYNIN 5 MG PO SCH (11:25)
[2023-07-19] MEDS ORDERED: traZODone HCL 50 MG TABLET (FP) ONE (22:30)
[2023-07-20] MEDS: LORazepam 0.5 MG TABLET PO ONE (05:00)
[2023-07-20 10:58] VITALS: BP 112/69; PULSE 72; RESP 18; TEMP 97.3
== END 2023-07-20 09:25 | disposition home or self-care (01) | DRG 897 ==
LOC: YASAS 11:14 → Y6N 12:17
PROVIDERS: ADMIT Allergy & Immunology; ATTEND Surgery
PROC: HZ2ZZZZ Detoxification Services for Substance Abuse Treatment (ICD-10-PCS; principal; 2023-07-16)
DX: F10.230 Alcohol dependence with withdrawal, uncomplicated (principal); F31.81 Bipolar II disorder; K86.0 Alcohol-induced chronic pancreatitis; F17.213 Nicotine dependence, cigarettes, with withdrawal; F42.4 Excoriation (skin-picking) disorder; I10 Essential (primary) hypertension; J43.0 Unilateral pulmonary emphysema [MacLeod's syndrome]; J45.20 Mild intermittent asthma, uncomplicated; K86.81 Exocrine pancreatic insufficiency; K21.9 Gastro-esophageal reflux disease without esophagitis; H40.10X1 Unspecified open-angle glaucoma, mild stage
CPT/HCPCS: 36415; 80053; 80307; 83036; 85027; 86780; 93005; 93010; Q0162

== ENCOUNTER 2023-09-30 10:58 | Inpatient (IN) | payer OTHER ==
[2023-09-30 12:14] VITALS: BMI 28.3
[2023-09-30] MEDS ORDERED: IBUPROFEN 400 MG TABLET (FP) PO PRN (12:27)
[2023-09-30] MEDS ORDERED: BENZONATATE 200 MG CAPSULE PO PRN (12:27)
[2023-09-30] MEDS ORDERED: DICYCLOMINE HCL 10 MG CAPSULE PO PRN (12:27)
[2023-09-30] MEDS ORDERED: BENZOCAINE/MENTHOL (CHLORASEPTIC ) LOZENGE MM PRN (12:27)
[2023-09-30] MEDS ORDERED: NALOXONE HCL 0.4 MG/ML VIAL IM PRN (12:27)
[2023-09-30] MEDS ORDERED: MAG HYDROX/AL HYDROX/SIMETH 30 ML UNIT-DOSE CUP PO PRN (12:27)
[2023-09-30] MEDS ORDERED: ACETAMINOPHEN 325 MG TABLET (FP) PO PRN (12:27)
[2023-09-30] MEDS ORDERED: guaiFENesin 600 MG TABLET.ER (FP) PO PRN (12:27)
[2023-09-30] MEDS ORDERED: BISMUTH SUBSALICYLATE 262 MG/15 ML BTL PO PRN (12:27)
[2023-09-30] MEDS ORDERED: POLYETHYLENE GLYCOL (HEALTHYLAX) 3350 17 GM PACKET PO PRN (12:27)
[2023-09-30] MEDS ORDERED: NALOXONE (NARCAN) HCL 4 MG/0.1 ML SPRAY NS PRN (12:27)
[2023-09-30] MEDS ORDERED: LOPERAMIDE HCL 2 MG CAPSULE PO PRN (12:27)
[2023-09-30] MEDS ORDERED: ONDANSETRON *ODT* 4 MG TABLET ONE (13:20)
[2023-09-30] MEDS ORDERED: LORazepam 1 MG TABLET ONE (14:01)
[2023-09-30] MEDS ORDERED: PRENATAL VITAMINS W/ FOLIC ACID TABLET (FP) PO ONE (14:01)
[2023-09-30] MEDS: PRENATAL VITAMINS W/ FOLIC ACID TABLET (FP) PO SCH (14:03)
[2023-09-30] MEDS: LORazepam 1 MG TABLET PO PRN (14:04)
[2023-09-30] MEDS: LORazepam 2 MG TABLET PO ONE (14:42)
[2023-09-30] MEDS: LORazepam 2 MG TABLET PO SCH (17:29)
[2023-09-30] MEDS: IBUPROFEN 600 MG TABLET (FP) PO PRN (17:29)
[2023-09-30] MEDS: THIAMINE 100 MG TABLET PO SCH (22:31)
[2023-09-30] MEDS: MELATONIN 5 MG TABLETS PO SCH (22:31)
[2023-09-30] MEDS: traZODone HCL 100 MG TABLET (FP) PO SCH (22:33)
[2023-10-01] MEDS ORDERED: ALBUTEROL SO4 HFA INHALER IH PRN (07:29)
[2023-10-01] MEDS: FLUoxetine HCL 20 MG CAPSULE PO SCH (11:34)
[2023-10-01] MEDS: amLODIPine BESYLATE 10 MG TABLET (FP) PO SCH (11:35)
[2023-10-01] MEDS: PANTOPRAZOLE 20 MG TABLET PO SCH (11:35)
[2023-10-01] MEDS: LOSARTAN POTASSIUM 25 MG TABLET PO SCH (11:35)
[2023-10-01] MEDS: PATIENT'S OWN MEDICATION (NON-FORMULARY) (Oxybutynin Chloride [Oxybutynin Chloride Er] 5 M PO SCH (11:41)
[2023-10-01] MEDS: MEMANTINE HCL 10 MG TABLET (FP) PO SCH (11:41)
[2023-10-01] MEDS: NICOTINE 7 MG/24 HOURS TOPICAL PATCH TD SCH (11:42)
[2023-10-01] MEDS: TIMOLOL 0.5% OPHTHALMIC SOL 5 ML BOTTLE OU SCH (11:42)
[2023-10-01 11:48] LABS: HEMATOCRIT 40.8 % (32.4-45.2); MCH 26.5 pg (25.7-33.7); MCHC 31.8 g/dl (32.0-36.0); MEAN CELL VOLUME 83.2 fl (80-96); MEAN PLT VOLUME 11.1 fl (7.5-11.1); PLATELET COUNT 221 10^3/uL (134-434); RBC 4.91 M/mm3 (3.60-5.2); RDW 29.8 % (11.6-15.6); WHITE BLOOD COUNT 4.9 K/mm3 (4.0-10.0)
[2023-10-01] MEDS: LIPASE/PROTEASE/AMYLASE 6,000 UNIT CAPSULE PO SCH (11:49)
[2023-10-01] MEDS: BISACODYL 5 MG TABLET.DR (FP) PO PRN (11:49)
[2023-10-01 11:57] LABS: CHLORIDE 106 mmol/L (98-107); POTASSIUM 4.4 mmol/L (3.5-5.1); SODIUM 141 mmol/L (136-145)
[2023-10-01 12:03] LABS: ANION GAP 6 mmol/L (4-13); BLOOD UREA NITROGEN 4.7 mg/dL (7-18); CALCIUM 8.7 mg/dL (8.5-10.1); CO2 29 mmol/L (21-32); GLUCOSE,RANDOM 109 mg/dL (74-106)
[2023-10-01 12:06] LABS: CREATININE 0.7 mg/dL (0.55-1.3); SGOT/AST 119 U/L (15-37); SGPT/ALT 110 U/L (13-61)
[2023-10-01 12:07] LABS: BILIRUBIN,TOTAL 0.6 mg/dL (0.2-1); TOT PROT 6.8 g/dl (6.4-8.2)
[2023-10-01 12:08] LABS: ALK PHOS 158 U/L (45-117)
[2023-10-01] MEDS: BRIMONIDINE TARTRATE 0.15% OPHTHALMIC 5 ML BOTTLE OU SCH (14:22)
[2023-10-01] MEDS: GABAPENTIN 100 MG CAPSULE PO SCH (14:22)
[2023-10-01] MEDS: FERROUS SO4 325 MG TABLET (FP) PO SCH (14:22)
[2023-10-01] MEDS: MAGNESIUM HYDROX 2400MG/30ML ORAL SUSPENSION 30 ML CUP PO PRN (18:38)
[2023-10-01] MEDS: LACTULOSE 20 GM/30 ML UDC (FOR ORAL USE ONLY) PO SCH (22:48)
[2023-10-01] MEDS: ACAMPROSATE CALCIUM 333 MG TABLET.DR PO SCH (22:49)
[2023-10-02] MEDS: LORazepam 1 MG TABLET PO SCH (05:37)
[2023-10-03] MEDS ORDERED: LORazepam 0.5 MG TABLET PO PRN
[2023-10-03] MEDS: LORazepam 0.5 MG TABLET PO SCH (05:41)
[2023-10-03] MEDS: ONDANSETRON *ODT* 4 MG TABLET SL PRN (07:34)
[2023-10-04] MEDS: LORazepam 0.5 MG TABLET PO ONE (05:21)
[2023-10-04 07:55] VITALS: RESP 16
[2023-10-04] MEDS: hydrOXYzine PAMOATE 25 MG CAPSULE (FP) PO PRN (14:03)
[2023-10-04] MEDS: METHOCARBAMOL 500 MG TABLET PO PRN (14:03)
[2023-10-04 17:29] VITALS: BP 141/88; PULSE 57; TEMP 97.6
== END 2023-10-04 18:39 | disposition other institution (70) | DRG 897 ==
LOC: YASAS 10:58 → Y6N 13:06
PROVIDERS: ADMIT Allergy & Immunology; ATTEND Surgery
PROC: HZ2ZZZZ Detoxification Services for Substance Abuse Treatment (ICD-10-PCS; principal; 2023-09-30)
DX: F10.230 Alcohol dependence with withdrawal, uncomplicated (principal); K86.0 Alcohol-induced chronic pancreatitis; F17.210 Nicotine dependence, cigarettes, uncomplicated; F41.8 Other specified anxiety disorders; H40.10X0 Unspecified open-angle glaucoma, stage unspecified; I10 Essential (primary) hypertension; J43.0 Unilateral pulmonary emphysema [MacLeod's syndrome]; J45.20 Mild intermittent asthma, uncomplicated; K21.9 Gastro-esophageal reflux disease without esophagitis; N32.81 Overactive bladder; R79.89 Other specified abnormal findings of blood chemistry; Z98.84 Bariatric surgery status; Z99.89 Dependence on other enabling machines and devices
CPT/HCPCS: 36415; 80053; 80305; 80307; 82140; 85027; 86780; 93005; 93010; Q0162

== ENCOUNTER 2023-10-04 19:35 | Inpatient (IN) | payer OTHER ==
[~2023-10-04 19:35] MED LIST: ACETAMINOPHEN 325 MG TABLET (FP) PO PRN; BENZOCAINE/MENTHOL (CHLORASEPTIC ) LOZENGE MM PRN; BENZONATATE 200 MG CAPSULE PO PRN; LOPERAMIDE HCL 2 MG CAPSULE PO PRN; MAG HYDROX/AL HYDROX/SIMETH 30 ML UNIT-DOSE CUP PO PRN; MAGNESIUM HYDROX 2400MG/30ML ORAL SUSPENSION 30 ML CUP PO PRN; NICOTINE POLACRILEX 2 MG GUM BUC PRN; NICOTINE POLACRILEX 2 MG LOZENGE BC PRN; POLYETHYLENE GLYCOL (HEALTHYLAX) 3350 17 GM PACKET PO PRN; guaiFENesin 600 MG TABLET.ER (FP) PO PRN
[2023-10-04] MEDS: LIPASE/PROTEASE/AMYLASE 6,000 UNIT CAPSULE PO SCH (20:13)
[2023-10-04] MEDS: FAMOTIDINE 20 MG TABLET PO SCH (20:13)
[2023-10-04] MEDS: LACTULOSE 20 GM/30 ML UDC (FOR ORAL USE ONLY) PO SCH (20:13)
[2023-10-04] MEDS: FERROUS SO4 325 MG TABLET (FP) PO SCH (20:13)
[2023-10-04] MEDS: GABAPENTIN 100 MG CAPSULE PO SCH (22:34)
[2023-10-04] MEDS: ACAMPROSATE CALCIUM 333 MG TABLET.DR PO SCH (22:34)
[2023-10-04] MEDS: MELATONIN 5 MG TABLETS PO SCH (22:34)
[2023-10-04] MEDS: traZODone HCL 100 MG TABLET (FP) PO SCH (22:35)
[2023-10-04] MEDS: BRIMONIDINE TARTRATE 0.15% OPHTHALMIC 5 ML BOTTLE OU SCH (22:35)
[2023-10-04] MEDS: THIAMINE 100 MG TABLET PO SCH (22:35)
[2023-10-04] MEDS: TIMOLOL 0.5% OPHTHALMIC SOL 5 ML BOTTLE OU SCH (22:45)
[2023-10-05] MEDS: FLUoxetine HCL 20 MG CAPSULE PO SCH (10:15)
[2023-10-05] MEDS: PRENATAL VITAMINS W/ FOLIC ACID TABLET (FP) PO SCH (10:16)
[2023-10-05] MEDS: amLODIPine BESYLATE 10 MG TABLET (FP) PO SCH (10:16)
[2023-10-05] MEDS: NICOTINE 7 MG/24 HOURS TOPICAL PATCH TD SCH (10:16)
[2023-10-05] MEDS: LOSARTAN POTASSIUM 25 MG TABLET PO SCH (10:17)
[2023-10-05] MEDS: SOLIFENACIN SUCCINATE 5 MG TAB PO SCH (10:17)
[2023-10-05] MEDS: IBUPROFEN 600 MG TABLET (FP) PO PRN (10:25)
[2023-10-05] MEDS: hydrOXYzine PAMOATE 25 MG CAPSULE (FP) PO PRN (15:47)
[2023-10-06] MEDS: ALBUTEROL SO4 HFA INHALER IH PRN (10:08)
[2023-10-06] MEDS: LIPASE/PROTEASE/AMYLASE 6,000 UNIT CAPSULE PO SCH (11:48)
[2023-10-06] MEDS: LACTULOSE 20 GM/30 ML UDC (FOR ORAL USE ONLY) PO SCH (14:36)
[2023-10-07 08:55] LABS: INR 0.98 (0.83-1.09); PROTHROMBIN TIME (PATIENT) 11.3 SEC (9.7-13.0)
[2023-10-07] MEDS: FERROUS SO4 325 MG TABLET (FP) PO SCH (10:13)
[2023-10-07] MEDS: LIPASE/PROTEASE/AMYLASE 24,000 UNIT CAPSULE PO SCH (12:53)
[2023-10-09 07:08] VITALS: RESP 18
[2023-10-09] MEDS: IBUPROFEN 400 MG TABLET (FP) PO PRN (13:17)
[2023-10-11 07:17] VITALS: BP 133/75; PULSE 60; TEMP 97.6
== END 2023-10-11 10:20 | disposition home or self-care (01) | DRG 895 ==
LOC: YASAS 19:35 → Y5N 19:38
PROVIDERS: ADMIT Allergy & Immunology; ATTEND Psychiatry & Neurology Pain Medicine
PROC: HZ42ZZZ Group Counseling for Substance Abuse Treatment, Cognitive-Behavioral (ICD-10-PCS; principal; 2023-10-04)
DX: F10.20 Alcohol dependence, uncomplicated (principal); F31.81 Bipolar II disorder; E72.20 Disorder of urea cycle metabolism, unspecified; K86.1 Other chronic pancreatitis; F17.210 Nicotine dependence, cigarettes, uncomplicated; F19.24 Other psychoactive substance dependence with psychoactive substance-induced mood disorder; F41.9 Anxiety disorder, unspecified; I10 Essential (primary) hypertension; J44.9 Chronic obstructive pulmonary disease, unspecified; K21.9 Gastro-esophageal reflux disease without esophagitis; M79.7 Fibromyalgia; M06.9 Rheumatoid arthritis, unspecified; M54.50 Low back pain, unspecified; G89.29 Other chronic pain
CPT/HCPCS: 36415; 82652; 83735; 85610

== ENCOUNTER 2024-02-01 12:12 | Inpatient (IN) | payer OTHER ==
[2024-02-01 13:16] VITALS: BMI 31.1
[2024-02-01] MEDS ORDERED: METHOCARBAMOL 500 MG TABLET PO PRN (13:28)
[2024-02-01] MEDS ORDERED: ACETAMINOPHEN 325 MG TABLET (FP) PO PRN (13:28)
[2024-02-01] MEDS ORDERED: IBUPROFEN 600 MG TABLET (FP) PO PRN (13:28)
[2024-02-01] MEDS ORDERED: BENZOCAINE/MENTHOL (CHLORASEPTIC ) LOZENGE MM PRN (13:28)
[2024-02-01] MEDS ORDERED: BISMUTH SUBSALICYLATE 262 MG/15 ML BTL PO PRN (13:28)
[2024-02-01] MEDS ORDERED: NICOTINE POLACRILEX 2 MG LOZENGE BC PRN (13:28)
[2024-02-01] MEDS ORDERED: guaiFENesin 600 MG TABLET.ER (FP) PO PRN (13:28)
[2024-02-01] MEDS ORDERED: NALOXONE (NARCAN) HCL 4 MG/0.1 ML SPRAY NS PRN (13:28)
[2024-02-01] MEDS ORDERED: hydrOXYzine PAMOATE 25 MG CAPSULE (FP) PO PRN (13:28)
[2024-02-01] MEDS ORDERED: DICYCLOMINE HCL 10 MG CAPSULE PO PRN (13:28)
[2024-02-01] MEDS ORDERED: BENZONATATE 200 MG CAPSULE PO PRN (13:28)
[2024-02-01] MEDS ORDERED: LORazepam 1 MG TABLET PO PRN (13:28)
[2024-02-01] MEDS ORDERED: POLYETHYLENE GLYCOL (HEALTHYLAX) 3350 17 GM PACKET PO PRN (13:28)
[2024-02-01] MEDS ORDERED: MAGNESIUM HYDROX 2400MG/30ML ORAL SUSPENSION 30 ML CUP PO PRN (13:28)
[2024-02-01] MEDS ORDERED: LACTULOSE 20 GM/30 ML UDC (FOR ORAL USE ONLY) PO PRN (13:31)
[2024-02-01] MEDS ORDERED: ACAMPROSATE CALCIUM 333 MG TABLET.DR PO SCH (14:00)
[2024-02-01] MEDS ORDERED: LIPASE/PROTEASE/AMYLASE 6,000 UNIT CAPSULE PO SCH (14:00)
[2024-02-01] MEDS: LORazepam 2 MG TABLET PO ONE (14:31)
[2024-02-01] MEDS: PRENATAL VITAMINS W/ FOLIC ACID TABLET (FP) PO SCH (14:31)
[2024-02-01] MEDS: TRIMETHOBENZAMIDE HCL 200MG/2ML INJ IM PRN (14:38)
[2024-02-01] MEDS: FAMOTIDINE 20 MG TABLET PO SCH (16:49)
[2024-02-01] MEDS: LIPASE/PROTEASE/AMYLASE 6,000 UNIT CAPSULE PO SCH (17:48)
[2024-02-01] MEDS: LORazepam 2 MG TABLET PO SCH (17:48)
[2024-02-01] MEDS: THIAMINE 100 MG TABLET PO SCH (22:36)
[2024-02-01] MEDS: PANTOPRAZOLE 20 MG TABLET PO SCH (22:36)
[2024-02-01] MEDS: ACAMPROSATE CALCIUM 333 MG TABLET.DR PO SCH (22:36)
[2024-02-01] MEDS: MELATONIN 5 MG TABLETS PO SCH (22:36)
[2024-02-01] MEDS: TIMOLOL 0.5% OPHTHALMIC SOL 5 ML BOTTLE OU SCH (22:37)
[2024-02-01] MEDS: BRIMONIDINE TARTRATE 0.15% OPHTHALMIC 5 ML BOTTLE OU SCH (22:37)
[2024-02-02] MEDS ORDERED: NALTREXONE HCL 50 MG TABLET PO SCH (10:00)
[2024-02-02] MEDS: LOSARTAN POTASSIUM 25 MG TABLET PO SCH (10:38)
[2024-02-02] MEDS: ONDANSETRON *ODT* 4 MG TABLET SL PRN (10:42)
[2024-02-02] MEDS: LOPERAMIDE HCL 2 MG CAPSULE PO PRN (10:42)
[2024-02-02] MEDS: BRIMONIDINE TARTRATE 0.15% OPHTHALMIC 5 ML BOTTLE OU SCH (11:14)
[2024-02-02] MEDS: GABAPENTIN 100 MG CAPSULE PO SCH (13:39)
[2024-02-02] MEDS ORDERED: ACAMPROSATE CALCIUM 333 MG TABLET.DR PO SCH (14:00)
[2024-02-02] MEDS: ARIPiprazole 15 MG TABLET PO SCH (14:06)
[2024-02-02] MEDS: FLUoxetine HCL 20 MG CAPSULE PO SCH (14:06)
[2024-02-02] MEDS: OXYBUTYNIN CHLORIDE 5 MG TABLET PO SCH (14:09)
[2024-02-02 14:52] LABS: HEMATOCRIT 39.4 % (32.4-45.2); HEMOGLOBIN 12.4 GM/dL (10.7-15.3); MCH 28.5 pg (25.7-33.7); MCHC 31.5 g/dl (32.0-36.0); MEAN CELL VOLUME 90.4 fl (80-96); MEAN PLT VOLUME 9.5 fl (7.5-11.1); PLATELET COUNT 227 10^3/uL (134-434); RBC 4.36 M/mm3 (3.60-5.2); RDW 15.3 % (11.6-15.6); WHITE BLOOD COUNT 5.5 K/mm3 (4.0-10.0)
[2024-02-02 15:08] LABS: POTASSIUM 4.3 mmol/L (3.5-5.1)
[2024-02-02 15:53] LABS: BLOOD UREA NITROGEN 12.1 mg/dL (7-18)
[2024-02-02 15:54] LABS: ALBUMIN 3.2 g/dl (3.4-5.0)
[2024-02-02 15:56] LABS: CREATININE 1.1 mg/dL (0.55-1.3)
[2024-02-02 15:58] LABS: BILIRUBIN,TOTAL 0.4 mg/dL (0.2-1); TOT PROT 6.8 g/dl (6.4-8.2)
[2024-02-02] MEDS: traZODone HCL 100 MG TABLET (FP) PO SCH (22:41)
[2024-02-03] MEDS: LORazepam 1 MG TABLET PO SCH (05:56)
[2024-02-03] MEDS: MAG HYDROX/AL HYDROX/SIMETH 30 ML UNIT-DOSE CUP PO PRN (17:05)
[2024-02-03] MEDS: IBUPROFEN 400 MG TABLET (FP) PO PRN (17:05)
[2024-02-03] MEDS: LACTULOSE 20 GM/30 ML UDC (FOR ORAL USE ONLY) PO SCH (17:05)
[2024-02-03] MEDS: ALBUTEROL SO4 HFA INHALER IH PRN (17:06)
[2024-02-04] MEDS ORDERED: LORazepam 0.5 MG TABLET PO PRN
[2024-02-04] MEDS: LORazepam 0.5 MG TABLET PO SCH (05:46)
[2024-02-04 10:44] VITALS: RESP 16
[2024-02-04] MEDS: NYSTATIN POWDER 100,000 UNITS/GM - 15 GM TOPICAL POWDER TP SCH (14:12)
[2024-02-04 14:28] VITALS: BP 136/80; PULSE 68; TEMP 98.6
[2024-02-04] MEDS: NALOXONE (NYS OPIOID OVERDOSE PROGRAM) 4 MG/0.1 ML SPRAY NS PRN (17:55)
[2024-02-05] MEDS ORDERED: LORazepam 0.5 MG TABLET PO ONE (05:00)
== END 2024-02-04 17:32 | disposition home or self-care (01) | DRG 897 ==
LOC: YASAS 12:12 → Y6N 13:57
PROVIDERS: ADMIT Allergy & Immunology; ATTEND Surgery
PROC: HZ2ZZZZ Detoxification Services for Substance Abuse Treatment (ICD-10-PCS; principal; 2024-02-01)
DX: F10.230 Alcohol dependence with withdrawal, uncomplicated (principal); F31.81 Bipolar II disorder; F17.210 Nicotine dependence, cigarettes, uncomplicated; F10.282 Alcohol dependence with alcohol-induced sleep disorder; F41.9 Anxiety disorder, unspecified; I10 Essential (primary) hypertension; J43.0 Unilateral pulmonary emphysema [MacLeod's syndrome]; K21.9 Gastro-esophageal reflux disease without esophagitis; K74.60 Unspecified cirrhosis of liver; M54.41 Lumbago with sciatica, right side; M54.42 Lumbago with sciatica, left side; M06.9 Rheumatoid arthritis, unspecified; M79.7 Fibromyalgia; M17.0 Bilateral primary osteoarthritis of knee; Z99.89 Dependence on other enabling machines and devices; S80.211A Abrasion, right knee, initial encounter; W19.XXXA Unspecified fall, initial encounter; Y92.230 Patient room in hospital as the place of occurrence of the external cause
CPT/HCPCS: 36415; 72220-TC-FY; 73560-TC-LT-FY; 73560-TC-RT-FY; 80053; 80305; 80307; 82140; 85027; 86780; 86803; 93005; 93010; Q0162

== ENCOUNTER 2024-03-14 11:31 | Inpatient (IN) | payer OTHER ==
[2024-03-14 12:11] VITALS: BMI 29.9
[2024-03-14] MEDS ORDERED: BISMUTH SUBSALICYLATE 262 MG/15 ML BTL PO PRN (14:21)
[2024-03-14] MEDS ORDERED: POLYETHYLENE GLYCOL (HEALTHYLAX) 3350 17 GM PACKET PO PRN (14:21)
[2024-03-14] MEDS ORDERED: IBUPROFEN 400 MG TABLET (FP) PO PRN (14:21)
[2024-03-14] MEDS ORDERED: BENZOCAINE/MENTHOL (CHLORASEPTIC ) LOZENGE MM PRN (14:21)
[2024-03-14] MEDS ORDERED: DICYCLOMINE HCL 10 MG CAPSULE PO PRN (14:21)
[2024-03-14] MEDS ORDERED: IBUPROFEN 600 MG TABLET (FP) PO PRN (14:21)
[2024-03-14] MEDS ORDERED: MAG HYDROX/AL HYDROX/SIMETH 30 ML UNIT-DOSE CUP PO PRN (14:21)
[2024-03-14] MEDS ORDERED: LOPERAMIDE HCL 2 MG CAPSULE PO PRN (14:21)
[2024-03-14] MEDS ORDERED: MAGNESIUM HYDROX 2400MG/30ML ORAL SUSPENSION 30 ML CUP PO PRN (14:21)
[2024-03-14] MEDS ORDERED: BENZONATATE 200 MG CAPSULE PO PRN (14:21)
[2024-03-14] MEDS ORDERED: guaiFENesin 600 MG TABLET.ER (FP) PO PRN (14:21)
[2024-03-14] MEDS ORDERED: HYDROCORTISONE 2.5% TOPICAL CREAM 30 GM TUBE TP PRN (15:20)
[2024-03-14] MEDS ORDERED: ACETAMINOPHEN 325 MG TABLET (FP) ONE (15:28)
[2024-03-14] MEDS: ACETAMINOPHEN 325 MG TABLET (FP) PO PRN (15:31)
[2024-03-14] MEDS: LORazepam 2 MG TABLET PO SCH (17:30)
[2024-03-14] MEDS: ONDANSETRON *ODT* 4 MG TABLET SL PRN (17:33)
[2024-03-14] MEDS: LORazepam 1 MG TABLET PO PRN (19:51)
[2024-03-14] MEDS: MELATONIN 5 MG TABLETS PO PRN (22:42)
[2024-03-14] MEDS: THIAMINE 100 MG TABLET PO SCH (22:42)
[2024-03-15] MEDS ORDERED: [UNRECOGNIZED DRUG - OTHER] RC PRN (06:58)
[2024-03-15] MEDS ORDERED: ALBUTEROL SO4 HFA INHALER IH PRN (06:58)
[2024-03-15] MEDS ORDERED: BENZOCAINE 28 GM HEMORRHOIDAL OINTMENT RC PRN (09:27)
[2024-03-15] MEDS: SOLIFENACIN SUCCINATE 5 MG TAB PO SCH (10:07)
[2024-03-15] MEDS: PRENATAL VITAMINS W/ FOLIC ACID TABLET (FP) PO SCH (10:07)
[2024-03-15] MEDS: LOSARTAN POTASSIUM 25 MG TABLET PO SCH (10:08)
[2024-03-15] MEDS: MEMANTINE HCL 10 MG TABLET (FP) PO SCH (10:08)
[2024-03-15] MEDS: FAMOTIDINE 20 MG TABLET PO SCH (10:08)
[2024-03-15] MEDS: TIMOLOL 0.5% OPHTHALMIC SOL 5 ML BOTTLE OU SCH (10:13)
[2024-03-15 10:15] LABS: HEMATOCRIT 39.3 % (32.4-45.2); HEMOGLOBIN 12.7 GM/dL (10.7-15.3); MCH 30.4 pg (25.7-33.7); MCHC 32.4 g/dl (32.0-36.0); MEAN CELL VOLUME 93.8 fl (80-96); MEAN PLT VOLUME 9.3 fl (7.5-11.1); PLATELET COUNT 166 10^3/uL (134-434); RBC 4.19 M/mm3 (3.60-5.2); RDW 15.9 % (11.6-15.6)
[2024-03-15 12:51] LABS: ALBUMIN 3.2 g/dl (3.4-5.0); BILIRUBIN,TOTAL 0.5 mg/dL (0.2-1); BLOOD UREA NITROGEN 10.8 mg/dL (7-18); POTASSIUM 4.2 mmol/L (3.5-5.1); TOT PROT 6.7 g/dl (6.4-8.2)
[2024-03-15] MEDS: GABAPENTIN 100 MG CAPSULE PO SCH (14:02)
[2024-03-15] MEDS: ACAMPROSATE CALCIUM 333 MG TABLET.DR PO SCH (14:02)
[2024-03-15] MEDS: LACTULOSE 20 GM/30 ML UDC (FOR ORAL USE ONLY) PO SCH (14:02)
[2024-03-15] MEDS: FERROUS SO4 325 MG TABLET (FP) PO SCH (17:21)
[2024-03-15] MEDS: LATANOPROST 0.005% OPHTH SOLN 2.5ML BOTTLE OU SCH (23:15)
[2024-03-16] MEDS: LORazepam 1 MG TABLET PO SCH (05:39)
[2024-03-17] MEDS ORDERED: LORazepam 0.5 MG TABLET PO PRN
[2024-03-17] MEDS: LORazepam 0.5 MG TABLET PO SCH (06:00)
[2024-03-17] MEDS: hydrOXYzine PAMOATE 25 MG CAPSULE (FP) PO PRN (17:47)
[2024-03-18] MEDS: LORazepam 0.5 MG TABLET PO ONE (05:55)
[2024-03-18 09:04] VITALS: BP 111/68; PULSE 66; RESP 18; TEMP 97.6
[2024-03-18] MEDS: NALOXONE (NYS OPIOID OVERDOSE PROGRAM) 4 MG/0.1 ML SPRAY NS SCH (09:42)
[2024-03-18] MEDS ORDERED: ARIPiprazole 15 MG TABLET PO SCH (11:15)
[2024-03-18] MEDS ORDERED: traZODone HCL 100 MG TABLET (FP) PO SCH (22:00)
== END 2024-03-18 11:45 | disposition home or self-care (01) | DRG 897 ==
LOC: YASAS 11:31 → Y6N 14:48
PROVIDERS: ADMIT Allergy & Immunology; ATTEND Surgery
PROC: HZ2ZZZZ Detoxification Services for Substance Abuse Treatment (ICD-10-PCS; principal; 2024-03-14)
DX: F10.230 Alcohol dependence with withdrawal, uncomplicated (principal); F31.81 Bipolar II disorder; F17.210 Nicotine dependence, cigarettes, uncomplicated; F10.282 Alcohol dependence with alcohol-induced sleep disorder; F10.280 Alcohol dependence with alcohol-induced anxiety disorder; F10.24 Alcohol dependence with alcohol-induced mood disorder; H40.10X1 Unspecified open-angle glaucoma, mild stage; I10 Essential (primary) hypertension; H91.93 Unspecified hearing loss, bilateral; J43.0 Unilateral pulmonary emphysema [MacLeod's syndrome]; J45.20 Mild intermittent asthma, uncomplicated; K21.9 Gastro-esophageal reflux disease without esophagitis; N32.81 Overactive bladder
CPT/HCPCS: 36415; 80053; 80305; 80307; 85027; 93005; 93010; Q0162

== ENCOUNTER 2025-02-08 11:05 | Inpatient (IN) | payer OTHER ==
[2025-02-08 11:32] VITALS: BMI 29.0
[2025-02-08] MEDS ORDERED: IBUPROFEN 400 MG TABLET (FP) PO PRN (11:49)
[2025-02-08] MEDS ORDERED: POLYETHYLENE GLYCOL (HEALTHYLAX) 3350 17 GM PACKET PO PRN (11:49)
[2025-02-08] MEDS ORDERED: NALOXONE (NARCAN) HCL 4 MG/0.1 ML SPRAY NS PRN (11:49)
[2025-02-08] MEDS ORDERED: MAGNESIUM HYDROX 2400MG/30ML ORAL SUSPENSION 30 ML CUP PO PRN (11:49)
[2025-02-08] MEDS ORDERED: BISMUTH SUBSALICYLATE 524 MG/30 ML PO PRN (11:49)
[2025-02-08] MEDS ORDERED: BENZOCAINE/MENTHOL (CHLORASEPTIC ) LOZENGE MM PRN (11:49)
[2025-02-08] MEDS ORDERED: guaiFENesin 600 MG TABLET.ER (FP) PO PRN (11:49)
[2025-02-08] MEDS ORDERED: BENZONATATE 200 MG CAPSULE PO PRN (11:49)
[2025-02-08] MEDS ORDERED: IBUPROFEN 600 MG TABLET (FP) PO PRN (11:49)
[2025-02-08] MEDS ORDERED: ONDANSETRON *ODT* 4 MG TABLET ONE (12:57)
[2025-02-08] MEDS ORDERED: ACETAMINOPHEN 325 MG TABLET (FP) ONE (12:57)
[2025-02-08] MEDS: ACETAMINOPHEN 325 MG TABLET (FP) PO PRN (12:58)
[2025-02-08] MEDS: ONDANSETRON *ODT* 4 MG TABLET SL PRN (12:58)
[2025-02-08] MEDS ORDERED: BISACODYL 5 MG TABLET.DR (FP) PO PRN (13:05)
[2025-02-08] MEDS ORDERED: ALBUTEROL SO4 HFA INHALER IH PRN (13:05)
[2025-02-08] MEDS: LIPASE/PROTEASE/AMYLASE 24,000 UNIT CAPSULE PO SCH (17:00)
[2025-02-08] MEDS ORDERED: PATIENT'S OWN MEDICATION (NON-FORMULARY) (Brimonidine Tartrate/Timolol [Combigan 0.2%-0.5% OU SCH (22:00)
[2025-02-08] MEDS ORDERED: TIMOLOL 0.5% OPHTHALMIC SOL 5 ML BOTTLE OU SCH (22:00)
[2025-02-08] MEDS: THIAMINE 100 MG TABLET PO SCH (22:44)
[2025-02-08] MEDS: MELATONIN 5 MG TABLETS PO SCH (22:44)
[2025-02-08] MEDS: TIMOLOL 0.5% OPHTHALMIC SOL 5 ML BOTTLE OU SCH (22:45)
[2025-02-08] MEDS: BUDESONIDE/FORMETEROL FUMARATE 160/4.5 mcg INHALER IH SCH (22:47)
[2025-02-08] MEDS: BRIMONIDINE TARTRATE 0.2% OPHTHALMIC 5 ML BOTTLE OU SCH (22:48)
[2025-02-09] MEDS: LOSARTAN POTASSIUM 50 MG TABLET PO SCH (10:30)
[2025-02-09] MEDS: OXYBUTYNIN CHLORIDE 5 MG TABLET PO SCH (10:31)
[2025-02-09] MEDS: FAMOTIDINE 20 MG TABLET PO SCH (10:31)
[2025-02-09] MEDS: SOLIFENACIN SUCCINATE 5 MG TAB PO SCH (10:32)
[2025-02-09] MEDS: PRENATAL VITAMINS W/ FOLIC ACID TABLET (FP) PO SCH (10:32)
[2025-02-09 12:01] LABS: MCHC 32.3 g/dl (32.2-35.5); MEAN CELL VOLUME 90.5 fl (79.4-94.8); MEAN PLT VOLUME 13.0 fl (9.4-12.3); RDW 17.1 % (12.4-16.4)
[2025-02-09 13:22] LABS: GLUCOSE,RANDOM 96.0 mg/dL (74-106)
[2025-02-09 13:23] LABS: TOT PROT 7.1 g/dl (6.4-8.2)
[2025-02-09 13:24] LABS: CO2 19.0 mmol/L (21-32)
[2025-02-09 13:25] LABS: ALK PHOS 139.0 U/L (40-150)
[2025-02-09 13:28] LABS: CREATININE 1.05 mg/dL (0.55-1.3); SGOT/AST 97.0 U/L (5-34); SGPT/ALT 62.0 U/L (0-55)
[2025-02-09] MEDS: hydrOXYzine PAMOATE 25 MG CAPSULE (FP) PO PRN (13:31)
[2025-02-09] MEDS: LIDOCAINE 5% TOPICAL PATCH TP SCH (14:55)
[2025-02-09] MEDS: LIDOCAINE PATCH REMOVAL MC SCH (22:30)
[2025-02-09] MEDS: MEMANTINE HCL 10 MG TABLET (FP) PO SCH (22:31)
[2025-02-10] MEDS: PANTOPRAZOLE 40 MG TABLET PO SCH (10:34)
[2025-02-10] MEDS: METHOCARBAMOL 500 MG TABLET PO PRN (17:15)
[2025-02-10] MEDS: LOPERAMIDE HCL 2 MG CAPSULE PO PRN (21:47)
[2025-02-10] MEDS: traZODone HCL 50 MG TABLET (FP) PO SCH (22:24)
[2025-02-10] MEDS: MAG HYDROX/AL HYDROX/SIMETH 30 ML UNIT-DOSE CUP PO PRN (22:27)
[2025-02-10] MEDS: DICYCLOMINE HCL 10 MG CAPSULE PO PRN (22:28)
[2025-02-11] MEDS: HYDROCORTISONE 2.5% TOPICAL CREAM 30 GM TUBE TP SCH (13:00)
[2025-02-12] MEDS: CEPHALEXIN MONOHYDRATE 500 MG CAPSULE (UD) PO SCH (11:53)
[2025-02-12] MEDS: CELECOXIB 200 MG CAPSULE PO SCH (12:34)
[2025-02-12] MEDS: NYSTATIN POWDER 100,000 UNITS/GM - 15 GM TOPICAL POWDER TP SCH (14:42)
[2025-02-12 15:11] VITALS: RESP 16
[2025-02-12] MEDS: NICOTINE POLACRILEX 2 MG LOZENGE BC PRN (15:56)
[2025-02-13 07:27] VITALS: TEMP 97.1
[2025-02-13 08:41] VITALS: BP 111/64; PULSE 55
== END 2025-02-13 11:04 | disposition home or self-care (01) | DRG 897 ==
LOC: YASAS 11:05 → Y6N 12:50
PROVIDERS: ADMIT Allergy & Immunology; ATTEND Student in an Organized Health Care Education/Training Program
PROC: HZ2ZZZZ Detoxification Services for Substance Abuse Treatment (ICD-10-PCS; principal; 2025-02-08)
DX: F10.230 Alcohol dependence with withdrawal, uncomplicated (principal); F31.81 Bipolar II disorder; L03.116 Cellulitis of left lower limb; F17.210 Nicotine dependence, cigarettes, uncomplicated; F10.282 Alcohol dependence with alcohol-induced sleep disorder; F10.280 Alcohol dependence with alcohol-induced anxiety disorder; F10.24 Alcohol dependence with alcohol-induced mood disorder; F43.10 Post-traumatic stress disorder, unspecified; I10 Essential (primary) hypertension; J44.9 Chronic obstructive pulmonary disease, unspecified; K21.9 Gastro-esophageal reflux disease without esophagitis; M54.40 Lumbago with sciatica, unspecified side; G89.29 Other chronic pain; N32.81 Overactive bladder; Z87.19 Personal history of other diseases of the digestive system; Z99.89 Dependence on other enabling machines and devices
CPT/HCPCS: 36415; 73590-TC-LT-FY; 73610-TC-LT-FY; 73630-TC-LT; 80053; 80164; 80305; 80307; 85027; 86780; 93005; 93010; Q0162